=== PATIENT | male | born 1960 | race Caucasian/White ===

== ENCOUNTER 2019-02-08 00:46 | Inpatient (IN) | payer MEDICAID ==
[2019-02-08] VITALS (8 sets, daily range): BP systolic 135–154; BP diastolic 89–103
[~2019-02-08] VITALS: Ht 170.2 cm; Wt 78.0 kg
--- NOTE | 2019-02-08 00:50 | NUR ---
Note undone in EDM - 02/08/19 at 0122 by EVICTOR PT AAOX4. BIBRA. PT C/O SOB X1 DAY. PT ALSO C/O NAUSEA AND VOMITTING. -SOB. PT SPEAKING IN FULL SENTENCES. PER PT "I HAVE BEEN VOMITING FOR 24 HRS." PT PLACED ON CONTINIOUS MONITOR AND PULSE OX. NO ACUTE DISTRESS NOTED. MD AT BEDSIDE.
--- NOTE | 2019-02-08 00:50 | NUR ---
PT AAOX4. BIBRA. PT C/O SOB X1 DAY. PT ALSO C/O NAUSEA AND VOMITTING. -SOB. +COUGH. PT BREATHING EVEN AND UNLABORED. PER PT "I HAVE BEEN VOMITING FOR 24 HRS." PT PLACED ON CONTINIOUS MONITOR AND PULSE OX. NO ACUTE DISTRESS NOTED. MD AT BEDSIDE.
--- NOTE | 2019-02-08 00:51 | NUR ---
PT SAT 93% ROOM AIR PT PLACED ON 2L NC SAT 96%
[2019-02-08] MEDS ORDERED: ONDANSETRON HCL/PF 4 MG/2 ML VIAL IV ONE ×2 (01:00→03:30)
[2019-02-08] MEDS ORDERED: ONDANSETRON HCL/PF 4 MG/2 ML VIAL ONE ×2 (01:08→02:46)
[2019-02-08 01:15] LABS: BASOPHILS # (AUTO) 0.1 /CMM (0.0-0.2); BASOPHILS % (AUTO) 0.4 % (0.0-2.0); HEMATOCRIT 41 % (39-51); HEMOGLOBIN 13.8 g/dL (13.5-17.5); LYMPHOCYTES # (AUTO) 0.5 /CMM (0.8-4.8); LYMPHOCYTES % (AUTO) 2.3 % (20.0-44.0); MEAN CORPUSCULAR HGB CONC 34 g/dl (31.0-36.0); MEAN CORPUSCULAR VOLUME 104 fL (80-96); MONOCYTES # (AUTO) 0.4 /CMM (0.1-1.30); NEUTROPHILS # (AUTO) 20.8 /CMM (1.8-8.9); NEUTROPHILS % (AUTO) 95.3 % (43.0-81.0); PLATELET COUNT (AUTO) 456 /CMM (150-450); RED BLOOD CELL COUNT(AUTO) 3.94 MIL/uL (4.5-6.0); WHITE BLOOD COUNT (AUTO) 21.9 K/uL (4.3-11.0)
[2019-02-08 01:19] LABS: CALCIUM, SERUM 8.6 mg/dL (8.5-10.1); CARBON DIOXIDE 13 mmol/L (21-32); CHLORIDE 99 mmol/L (98-107); CREATININE 1.6 mg/dL (0.6-1.3); GLUCOSE 246 mg/dL (74-106); POTASSIUM 3.6 mmol/L (3.5-5.1); SODIUM SERUM 135 mmol/L (136-145); UREA NITROGEN, BLOOD 7 mg/dL (7-18)
[2019-02-08 01:35] LABS: BILIRUBIN,DIRECT 0.2 mg/dL (0.0-0.2); BILIRUBIN,TOTAL 0.9 mg/dL (0.2-1.0)
[2019-02-08 01:36] LABS: ALBUMIN 3.9 g/dL (3.4-5.0)
--- NOTE | 2019-02-08 01:38 | NUR ---
Patient is resting comfortably in bed with eyes closed. Easily aroused. VSS.
[2019-02-08] MEDS ORDERED: IV NS 0.9% 250 ML IV ONE (01:50)
[2019-02-08] MEDS ORDERED: IOHEXOL-350 100 ML VIAL IV ONE (01:50)
[2019-02-08] MEDS ORDERED: CT SWABBABLE VALVE TRANS SET 1 EA INFUS.SET MC ONE (01:50)
--- NOTE | 2019-02-08 01:54 | NUR ---
BROUGHT TO CT
[2019-02-08] MEDS ORDERED: IV NS 0.9% 1,000 ML IV PRN ×2 (02:30)
--- NOTE | 2019-02-08 02:45 | NUR ---
VERBAL ORDER 4MG/2ML ZOFRAN X1
--- NOTE | 2019-02-08 03:13 | NUR ---
Patient is resting comfortably in bed with eyes closed. Easily aroused. VSS.
[2019-02-08] MEDS ORDERED: CEFTRIAXONE 500 MG VIAL IV ONE (03:30)
[2019-02-08] MEDS ORDERED: AZITHROMYCIN 500 MG in IV D5W 250 ML IV ONE (03:30)
[2019-02-08] MEDS ORDERED: AZITHROMYCIN 500 MG VIAL ONE (03:33)
[2019-02-08] MEDS ORDERED: CEFTRIAXONE 500 MG VIAL ONE (03:33)
[2019-02-08] MEDS ORDERED: hydrALAZINE HCL IV 20 MG VIAL IV PRN (04:30)
[2019-02-08] MEDS ORDERED: IV NS 0.9% 500 ML IV ONE (04:30)
[2019-02-08] MEDS ORDERED: ONDANSETRON HCL/PF 4 MG/2 ML VIAL IVP PRN (04:30)
[2019-02-08] MEDS ORDERED: Z GUARD REMEDY 2 OZ OINT TP PRN (04:30)
[2019-02-08] MEDS ORDERED: MAG HYDROX/AL HYDROX/SIMETH 30 ML UDC PO PRN (04:30)
[2019-02-08] MEDS ORDERED: ZOLPIDEM TARTRATE 5 MG TABLET PO PRN (04:30)
[2019-02-08] MEDS ORDERED: MAGNESIUM HYDROXIDE 30 ML UDC PO PRN (04:30)
--- NOTE | 2019-02-08 05:00 | NUR ---
Report given to Kimmie NUNEZ FOR SIRIA
--- NOTE | 2019-02-08 05:50 | NUR ---
PT MOVED TO BED 102 PER ACLS PROTOCOL.
--- NOTE | 2019-02-08 06:00 | NUR ---
SENIOR PROPERTY ACCOUNTANTOXYACETYLENE TORCH OPERATOR NOTES PATIENT BROUGHT IN FROM ER VIA [facility] FOR SEPSIS AND HTN URGENCY. PATIENT IS ALERT, ORIENTED X 4. ON O2 AT 10L VIA MASK, CHANGED TO NON-REBREATHER MASK SATURATING 97%. PER VENDOR MANAGEMENT ASSOCIATE REPORT, PATIENT GETS VERY ANXIOUS AND GETS SHORT OF BREATH. TELE MONITOR IN PLACE, SINUS TACH 118. PATIENT CAME WITH IV ATB INFUSING WELL. SKIN ASSESSMENT DONE- PICTURE ATTACHED TO CHART. BELONGINGS CHECKED BY ASSIGNED BOW MAKER MACHINE TENDER. WILL CONTINUE TO MONITOR ACCORDINGLY
[2019-02-08] MEDS: IV 1/2NS 1000 ML 1,000 ML IV PRN (06:14)
--- NOTE | 2019-02-08 07:15 | NUR ---
UTILITY SPECIALIST OPENING NOTE: RECEIVED PATIENT IN BED. AWAKE, ALERT AND ORIENTED X4. ON FACE MASK WITH 10LPM CONT 02 FOR RELIEF OF HIS ANXIETY. PATIENT IS VERBALIZING ABOUT HIS ANXIETY ATTACKS. ON CARDIAC MONITORING AND SINUS TACHYCARDIA IN THE 110-120S NOTED. IV SITE ON RIGHT FA G18 WITH 1/2 NS INFUSING @ 75ML/HR. CALL NO PAIN REPORTED. NO SOB, NOT IN ACUTE DISTRESS. CALL LIGHT IN REACH,, SIDE RAILS UP, BED LOCKED, LOW AND AT SEMI-FOWLERS POSITION. WILL CONTINUE TO MONITOR.
--- NOTE | 2019-02-08 07:30 | NUR ---
HEAD START ASSISTANT TEACHER CLOSING NOTES PATIENT SITTING UP IN BED, ALERT, ORIENTED X 4. PATIENT IS VERY ANXIOUS. ON O2 AT 10LPM VIA MASK. TELE MONITOR IN PLACE- SINUS TACH 118. PERIPHERAL IV INFUSING AT 75ML/HR. SAFETY MEASURES IN PLACE. CALL LIGHT WITHIN REACH. BED IN LOW, LOCKED POSITION. ENDORSED SIRIA TO AM RN
[2019-02-08] MEDS: HYDROCODONE/APAP 5/325MG 1 EACH TABLET PO PRN ×3 (07:38→22:01)
[2019-02-08] MEDS ORDERED: CEFTRIAXONE 1 G in IV D5W 50 ML IV SCH (09:00)
[2019-02-08] MEDS ORDERED: CEFTRIAXONE 1GM BAG (ER ONLY) 1 GM/50 ML PIGGYBACK IV ONE (09:00)
--- NOTE | 2019-02-08 09:17 | NUR ---
MUSIC COORDINATOR NOTE: CONTACTED MALICK QUAN NP REGARDING PATIENT'S REQUEST FOR ANTI ANXIETY MEDICATION FOR HIS ANXIETY. XANAX WAS REQUESTED DUE TO PATIENT'S REQUEST. AWAITING RESPONSE.
[2019-02-08] MEDS: ENSURE ENLIVE 237 ML LIQUID (VANILLA) PO SCH ×2 (12:55→17:00)
[2019-02-08] MEDS: busPIRone 5 MG TABLET PO SCH ×2 (13:33→16:18)
[2019-02-08] MEDS: ACETAMINOPHEN 325 MG TABLET PO PRN (16:17)
--- NOTE | 2019-02-08 19:15 | NUR ---
MS RN CLOSING NOTE: PATIENT IN BED. AWAKE, ALERT AND ORIENTED X4. ON FACE MASK WITH 10LPM CONT 02 WITH SATURATION AT 94%, CHARGE NURSE INFORMED MALICK QUAN NP EARLIER OF PATIENT'S CONDITION WITH WBC AND LACTIC ACID ELEVATION AND HIS CURRENT VENTILATION AND SATURATION STATUS DESPITE THE CURRENT OXYGENATION LEVEL. PATIENT WAS STILL COMPLAINING OF CONGESTION AND NOT FEELING VERY WELL. ORDER FOR TRANSFER TO ICU TO BE DONE FOR SODIUM BICARBONATE DRIP FOR THE PATIENT OBTAINED, AWAITING VACANCY OF BED FOR TRANSFER TO BE DONE. PATIENT NOT IN DISTRESS. ANXIETY IS NOW CONTROLLED, TACHYCARDIA STILL APPARENT IN THE 120S, TEMPERATURE OF 100.2 WAS RECORDED EARLIER AND ACETAMINOPHEN 650MG GIVEN AND COOLING MEASURES DONE FOR RELIEF. IV SITE ON RIGHT FA G18 WITH 1/2 NS INFUSING @ 75ML/HR. CALL NO PAIN REPORTED. CALL LIGHT IN REACH,, SIDE RAILS UP, BED LOCKED, LOW AND AT SEMI-FOWLERS POSITION. ENDORSED TO ONCOMING SHIFT FOR SIRIA.
--- NOTE | 2019-02-08 19:30 | NUR ---
rn notes: awaiting for bed from icu
--- NOTE | 2019-02-08 19:45 | NUR ---
rn notes: per cook morning josh, pt will be going to room 264 icu report to be given in 10mins per ed travel registered nurse nicu instruction
--- NOTE | 2019-02-08 20:17 | NUR ---
rn notes: contacted icu for report, spoked with panel monitor/corporate secretary ale, [facility] is busy and thery're getting pt from er, not be able to take 2 pt at the same time, as their floor is really busy, and the assigned rn for the pt still passing medication, will call us back in 15mins. notified pattern duplicator josh about the situation.
--- NOTE | 2019-02-08 20:31 | NUR ---
rn notes: report given to nick rahman over the phone.
--- NOTE | 2019-02-08 20:40 | NUR ---
SENIOR CONSTRUCTION PROJECT MANAGER OF CARE NOTES: PT TRANSFERRED TO ICU VIA ACLS PROTOCOL. ALL BELONGINGS OF PT, MEDICATION AND CHART BROUGHT TOGETHER WITH THE PT, HANDED OVER TO UNIT SEC/BREAD BAKER. MAXIFIME MEDICATION NOT IN CASSETTE, FAXED TO RN SUP TO OVERRIDE MEDICATION. PT A/O X4, ON 15L NRB, PT STILL C/O CONGESTION. TACHYPNEIC RR 23. ENDORSED TO ENRIQUE ALEXIS FOR CONTINUITY OF CARE.
[2019-02-08] MEDS ORDERED: SODIUM BICARBONATE SYR 50 MEQ/50 ML DISP.SYRIN ONE (20:47)
[2019-02-08] MEDS: Sodium Bicarbonate 150 MEQ in IV NS 0.9% 1,000 ML IV SCH (20:59)
[2019-02-08] MEDS ORDERED: CEFEPIME 1 GM VIAL ONE (21:33)
[2019-02-08] MEDS: CEFEPIME 1 GM in IV D5W 50 ML IV SCH (21:43)
--- NOTE | 2019-02-08 22:10 | NUR ---
HOT BOX SPOTTER: CALLED AND NOTIFIED DR. WARREN THAT PT IS CONGESTED WT CRACKLES UPON LUNG AUSCULTATION AND RECOMMENDED BREATHING TX. MD AGREED WT NEW ORDERS. NOTED AND CARRIED OUT. PT. REMAINED A/O X3, RESTLESS, ST ON HUMAN RESOURCES HR GENERALIST, STILL ON 15L 02 VIA NC. NORCO GIVEN FOR GEN. BODY PAIN WT GOOD EFFECT. CONTINUE ON BICARB DRIP AT 100ML/HR. SAFETY PRECAUTION NOTED. WILL CONTINUE TO MONITOR. Addendum: 02/09/19 at 0224 by VANESA LEA RN CORRECTION: PT ON 15L 02 VIA NON-REBREATHER MASK NOT NC.
[2019-02-08] MEDS: IPRATROPIUM NEB FS 0.5 MG/2.5 ML AMPUL.NEB NEB SCH (23:10)
[2019-02-08] MEDS: LEVALBUTEROL HCL NEB 1.25 MG/0.5 ML VIAL.NEB NEB SCH (23:10)
[2019-02-08 23:31] LABS: ABG BASE EXCESS 1.2 mmol/L; ABG OXYGEN SATURATION 97.8 % (92.0-98.5); ABG PCO2 34.3 mmHg (35.0-45.0); ABG PO2 104.2 mmHg (75.0-100.0); AaDO2 574.5 mmHg; COHb 0.2 % (0.5-1.5); MetHb 0.5 % (0.0-1.5); O2Hb 97.1 % (94.0-97.0); SITE, ABG Right Radial; VENT MODE, BG NRB 15L
[2019-02-09] VITALS (24 sets, daily range): BP systolic 91–144; BP diastolic 57–95
[2019-02-09] MEDS: IPRATROPIUM NEB FS 0.5 MG/2.5 ML AMPUL.NEB NEB SCH ×6 (03:47→23:47)
[2019-02-09] MEDS: LEVALBUTEROL HCL NEB 1.25 MG/0.5 ML VIAL.NEB NEB SCH ×6 (03:47→23:47)
[2019-02-09 04:31] LABS: BASOPHILS % (AUTO) 0.5 % (0.0-2.0); EOSINOPHILS % (AUTO) 0.1 % (0.0-6.0); HEMATOCRIT 37 % (39-51); HEMOGLOBIN 12.9 g/dL (13.5-17.5); LYMPHOCYTES # (AUTO) 0.5 /CMM (0.8-4.8); LYMPHOCYTES % (AUTO) 6.8 % (20.0-44.0); MEAN CORPUSCULAR HGB CONC 35 g/dl (31.0-36.0); MEAN CORPUSCULAR VOLUME 104 fL (80-96); MONOCYTES # (AUTO) 0.1 /CMM (0.1-1.30); MONOCYTES % (AUTO) 1.5 % (2.0-12.0); NEUTROPHILS # (AUTO) 7.1 /CMM (1.8-8.9); NEUTROPHILS % (AUTO) 91.1 % (43.0-81.0); PLATELET COUNT (AUTO) 247 /CMM (150-450); WHITE BLOOD COUNT (AUTO) 7.7 K/uL (4.3-11.0)
[2019-02-09] MEDS: HYDROCODONE/APAP 5/325MG 1 EACH TABLET PO PRN ×3 (04:36→20:25)
[2019-02-09 05:07] LABS: CALCIUM, SERUM 7.7 mg/dL (8.5-10.1); PHOSPHORUS 2.2 mg/dL (2.5-4.9); POTASSIUM 3.6 mmol/L (3.5-5.1)
[2019-02-09 05:19] LABS: THYROID STIMULATING HORMONE 2.314 uIU/mL (0.358-3.74)
[2019-02-09 05:27] LABS: MAGNESIUM 1.1 mg/dL (1.8-2.4)
[2019-02-09] MEDS: Magnesium 1GM/D5W 100ML PREMIX 100 ML IV SCH ×3 (05:46→08:03)
[2019-02-09] MEDS: AZITHROMYCIN 500 MG in IV D5W 250 ML IV SCH (06:09)
--- NOTE | 2019-02-09 06:30 | NUR ---
LINE DECORATOR: PLACED OM 8L 02 VIA FACE MASK WT NO ACUTE DISTRESS. NSR ON PROCESS IMPROVEMENT CONSULTANT. ALL NEEDS MET. SAFETY PRECAUTION NOTED AT ALL TIMES.
[2019-02-09] MEDS: Sodium Bicarbonate 150 MEQ in IV NS 0.9% 1,000 ML IV SCH (06:36)
--- NOTE | 2019-02-09 08:00 | NUR ---
ICU/RN INITIAL NOTES,AM RECEIVED BEDSIDE REPORT FROM NIGHT NURSE. PT ALERT, AWAKE, FOLLOWS COMMANDS, RESTLESSNESS NOTED AT TIMES, CURRENTLY RESTING IN BED. PT SWITCHED TO 3LITERS NASAL CANULA FROM MASK FOR BREAKFAST. SINUS TACH ON TELE. URINAL AT BEDSIDE. PIV PATENT AND INTACT, NO S/S OF INFECTION OR INFILTRATION NOTED. IVF INFUSING ORDERED, MAG IS CURRENTLY BEING REPLACED PER MD ORDER. ALL NEEDS WILL BE ATTENDED TO, SAFETY MEASURES TAKEN, BED IN LOW POSITION, SIDE RAILS UP, CALL LIGHT WITHIN REACH. WILL CONTINUE CARE.
[2019-02-09] MEDS: busPIRone 5 MG TABLET PO SCH ×3 (08:15→17:35)
[2019-02-09] MEDS: ENSURE ENLIVE 237 ML LIQUID (VANILLA) PO SCH ×3 (08:16→17:35)
[2019-02-09] MEDS: CEFEPIME 1 GM in IV D5W 50 ML IV SCH ×2 (09:20→21:22)
[2019-02-09] MEDS ORDERED: K PHOS NEUTRAL 250 MG TABLET PO ONE (12:30)
--- NOTE | 2019-02-09 19:00 | NUR ---
ICU/RN: AT BEDSIDE. PT ASSESSED. WILL REQUEST RECORDS FROM PREVIOUS HOSPITAL IN AM. NO NEW ORDERS AT THIS TIME. LAB ORDERS PLACED BY MD. WILL CONTINUE TO MONITOR.
--- NOTE | 2019-02-09 19:28 | NUR ---
ICU/RN ENDING NOTES,AM BEDSIDE REPORT ENDORSED TO NIGHT NURSE. PT ALERT, AWAKE, FOLLOWS COMMANDS. ALL NEEDS ATTENDED TO. PT ON 3LITERS NASAL CANULA, NO ACUTE DISTRESS NOTED. SINUS TACH ON TELE. PT WAS ABLE TO GO TO BEDSIDE COMMODE. ALL NEEDS ATTENDED TO, SAFETY MEASURES TAKEN, BED IN LOW POSITION, SIDE RAILS UP, CALL LIGHT WITHIN REACH. WILL CONTINUE CARE.
--- NOTE | 2019-02-09 19:30 | NUR ---
RN NOTES, RECEIVED PATIENT IN BED AWAKE A/O X4 ABLE TO VERBALIZED NEEDS, FOLLOWS COMMANDS, ON 3LITERS NASAL CANULA BREATHING EVEN AND UNLABORED NO S/S OF SOB/ACUTE DISTRESS AT THIS TIME, NSR ON TELE MONITOR WITH HR IN 90S AT THIS TIME, IV ACCESS INTACT AND PATENT S/S , NO S/S OF INFECTION OR INFILTRATION NOTED, ALL NEEDS WILL BE ATTENDED TO,ALL SAFETY MEASURES MAINTAINED, BED LOCKED AND LOW POSITION, SIDE RAILS UP, CALL LIGHT W/I REACH, WILL CONTINUE TO MONITOR CLOSELY.
--- NOTE | 2019-02-09 22:15 | NUR ---
RN NOTES, PATIENT NOTED WITH PERSISTENT COUGH AND ASKING FOR ROBITUSSIN AND LOZENGES, CALLED MD AND REPORT PATIENT'S CONDITION, AND REPLIED WITH ORDERS FOR ROBITUSSIN Q4HRD PRN AND LOZENGES, REFER TO GREY, NOTED AND CARRIED OUT.
[2019-02-09] MEDS: GUAIFENESIN/CODEINE 10 ML UDC PO PRN (22:38)
[2019-02-10] VITALS (21 sets, daily range): BP systolic 111–150; BP diastolic 63–94
[2019-02-10] MEDS: IPRATROPIUM NEB FS 0.5 MG/2.5 ML AMPUL.NEB NEB SCH ×5 (04:09→20:05)
[2019-02-10] MEDS: LEVALBUTEROL HCL NEB 1.25 MG/0.5 ML VIAL.NEB NEB SCH ×5 (04:10→20:05)
[2019-02-10] MEDS: LORAZEPAM 0.5 MG TABLET PO PRN ×3 (04:34→18:23)
[2019-02-10 05:11] LABS: BASOPHILS % (AUTO) 0.6 % (0.0-2.0); EOSINOPHILS % (AUTO) 1.5 % (0.0-6.0); HEMATOCRIT 32 % (39-51); HEMOGLOBIN 10.7 g/dL (13.5-17.5); LYMPHOCYTES # (AUTO) 0.4 /CMM (0.8-4.8); LYMPHOCYTES % (AUTO) 7.9 % (20.0-44.0); MEAN CORPUSCULAR HGB CONC 34 g/dl (31.0-36.0); MEAN CORPUSCULAR VOLUME 104 fL (80-96); MONOCYTES # (AUTO) 0.1 /CMM (0.1-1.30); NEUTROPHILS # (AUTO) 4.4 /CMM (1.8-8.9); PLATELET COUNT (AUTO) 168 /CMM (150-450); RED BLOOD CELL COUNT(AUTO) 3.03 MIL/uL (4.5-6.0)
[2019-02-10 05:29] LABS: CREATININE 0.8 mg/dL (0.6-1.3); PHOSPHORUS 2.4 mg/dL (2.5-4.9)
[2019-02-10 05:36] LABS: POTASSIUM 2.7 mmol/L (3.5-5.1)
[2019-02-10] MEDS: AZITHROMYCIN 500 MG in IV D5W 250 ML IV SCH (05:52)
[2019-02-10 06:00] LABS: THYROID STIMULATING HORMONE 2.667 uIU/mL (0.358-3.74)
[2019-02-10] MEDS: POTASSIUM CHLORIDE 20 MEQ TAB.PRT.SR PO SCH ×2 (06:16→08:19)
[2019-02-10] MEDS: GUAIFENESIN/CODEINE 10 ML UDC PO PRN ×2 (06:21→21:43)
--- NOTE | 2019-02-10 07:00 | NUR ---
RN NOTES, PATIENT ASLEEP AT THIS TIME, BUT AROUSES EASILY TO VERBAL STIMULI, ON 3LITERS NASAL CANULA BREATHING EVEN AND UNLABORED NO S/S OF SOB/ACUTE DISTRESS AT THIS TIME, NSR ON TELE MONITOR WITH HR IN 90S AT THIS TIME, IV ACCESS INTACT AND PATENT S/S , WITH POTASSIUM 2.7 THIS MORNING, AND ORDERED RECEIVED FROM MD TO REPLACED IT, NO SIGNIFICANT CHANGE IN CONDITION DURING THE NIGHT ALL NEEDS WILL BE ATTENDED TO,ALL SAFETY MEASURES MAINTAINED, BED LOCKED AND LOW POSITION, SIDE RAILS UP, CALL LIGHT W/I REACH, WILL ENDORSE CONTINUITY OF CARE TO ONCOMING NURSE.
--- NOTE | 2019-02-10 07:45 | NUR ---
ICU/RN INITIAL NOTES,AM RECEIVED BEDSIDE REPORT FROM NIGHT NURSE. PT ALERT, AWAKE, FOLLOWS COMMANDS. CURRENTLY RESTING IN BED. PT ON 3LITERS NASAL CANULA. SINUS/SINUS TACH ON TELE. URINAL AT BEDSIDE. PIV PATENT AND INTACT, NO S/S OF INFECTION OR INFILTRATION NOTED. ALL NEEDS WILL BE ATTENDED TO, SAFETY MEASURES TAKEN, BED IN LOW POSITION, SIDE RAILS UP, CALL LIGHT WITHIN REACH. WILL CONTINUE CARE. POSSIBLE DOWNGRADE TODAY.
[2019-02-10] MEDS: busPIRone 5 MG TABLET PO SCH ×3 (08:19→17:04)
[2019-02-10] MEDS: ENSURE ENLIVE 237 ML LIQUID (VANILLA) PO SCH ×3 (08:20→17:04)
[2019-02-10] MEDS: MENTHOL/CETYLPYRD (CEPACOL) 1 LOZ LOZENGE PO PRN ×3 (08:23→20:55)
[2019-02-10] MEDS: IV 1/2NS 1000 ML 1,000 ML IV PRN (08:47)
[2019-02-10] MEDS: CEFEPIME 1 GM in IV D5W 50 ML IV SCH ×2 (09:50→21:00)
[2019-02-10] MEDS ORDERED: K PHOS NEUTRAL 250 MG TABLET PO ONE (11:30)
--- NOTE | 2019-02-10 17:35 | NUR ---
ICU/RN: PT TRANSFERRED TO [facility]. BEDSIDE REPORT ENDORSED TO BART RN. ALL BELONGINGS AND MEDICATIONS SENT WITH PT. ALL NEEDS ATTENDED TO, BED BATH GIVEN. BED IN LOW AND LOCKED POSITION, SIDE RAILS UP, CALL LIGHT WITHIN REACH WILL CONTINUE CARE. PT ON NASAL CANULA, 3LITERS, NO DISTRESS. SINUS ON TELE.
--- NOTE | 2019-02-10 17:40 | NUR ---
RN NOTES Patient received from ICU, on 2L o2 nasal cannula, no sob noted, patient denies pain at this time and vital signs stable. Patient placed on tele monitor. Skin intact, R FA 18 gauge with no IVF at this time. Patient's bed at the lowest setting, call light within reach, side rails up x2.
[2019-02-10] MEDS: FERROUS SULFATE (325 MG) 325 MG/TAB TABLET PO SCH (18:19)
--- NOTE | 2019-02-10 18:33 | NUR ---
RN NOTES CLOSING Patient remains on 2L nasal cannula. no sob noted, patient denies any pain at this time. ST in the 90's. RFA 18g. Ativan given prn. bed at the lowest setting, call light within reach, side rails up x2. Will give report to NOC RN for SIRIA bedside.
--- NOTE | 2019-02-10 19:10 | NUR ---
CHANGED OF SHIFT REPORT Patient in bed, awake A/O x4. On 2L via NC tolerating well, non productive cough, denies pain. Sinu Rhythm in the Tele monitor. Appears calm, instructed to use call light for assistance, verbalized understanding.
[2019-02-10 22:11] LABS: OCCULT BLOOD STOOL NEGATIVE (NEGATIVE)
[2019-02-11] VITALS (7 sets, daily range): BP systolic 147–168; BP diastolic 89–103
[2019-02-11] MEDS: IPRATROPIUM NEB FS 0.5 MG/2.5 ML AMPUL.NEB NEB SCH ×7 (00:27→22:51)
[2019-02-11] MEDS: LEVALBUTEROL HCL NEB 1.25 MG/0.5 ML VIAL.NEB NEB SCH ×8 (00:27→22:51)
[2019-02-11] MEDS: LORAZEPAM 0.5 MG TABLET PO PRN ×3 (03:18→17:45)
[2019-02-11] MEDS: AZITHROMYCIN 500 MG in IV D5W 250 ML IV SCH (05:15)
--- NOTE | 2019-02-11 06:17 | NUR ---
END OF SHIFT REPORT Patient in bed, on low flow oxygen at 2L via NC tolerating well, denies SOB at rest and with exertion. Sinus rhythm in the Tele monitor. Cough relieved with PRN Robitussin/codeine. IV antibiotic as scheduled, Afebrile overnight. Stool OB negative. Fall precaution maintained.
[2019-02-11 06:28] LABS: BASOPHILS % (AUTO) 0.6 % (0.0-2.0); EOSINOPHILS % (AUTO) 3.3 % (0.0-6.0); HEMATOCRIT 31 % (39-51); HEMOGLOBIN 10.6 g/dL (13.5-17.5); LYMPHOCYTES # (AUTO) 0.4 /CMM (0.8-4.8); LYMPHOCYTES % (AUTO) 8.8 % (20.0-44.0); MEAN CORPUSCULAR HGB CONC 34 g/dl (31.0-36.0); MEAN CORPUSCULAR VOLUME 104 fL (80-96); MONOCYTES # (AUTO) 0.3 /CMM (0.1-1.30); MONOCYTES % (AUTO) 6.1 % (2.0-12.0); NEUTROPHILS # (AUTO) 3.6 /CMM (1.8-8.9); NEUTROPHILS % (AUTO) 81.2 % (43.0-81.0); PLATELET COUNT (AUTO) 183 /CMM (150-450); RED BLOOD CELL COUNT(AUTO) 2.98 MIL/uL (4.5-6.0); WHITE BLOOD COUNT (AUTO) 4.4 K/uL (4.3-11.0)
[2019-02-11 06:58] LABS: CALCIUM, SERUM 8.3 mg/dL (8.5-10.1); CREATININE 0.8 mg/dL (0.6-1.3); MAGNESIUM 1.6 mg/dL (1.8-2.4)
--- NOTE | 2019-02-11 07:38 | NUR ---
HOUSEHOLD CHORES OPENING NOTES Received Patient awake and resting in bed. A/O x 4. Patient in stable condition with no acute distress. Breathing even and unlabored on 2LPM via NC with no respiratory distress. Denies pain. Telemonitor in place and patent reading SR, HR-95. Safety precautions in place. Bed locked and set to lowest position with side rails x 2 up. All needs rendered at this time. Call light within reach. Will continue to monitor.
[2019-02-11 07:58] LABS: POTASSIUM 2.8 mmol/L (3.5-5.1)
[2019-02-11] MEDS: ENSURE ENLIVE 237 ML LIQUID (VANILLA) PO SCH ×3 (08:00→16:32)
[2019-02-11] MEDS: FERROUS SULFATE (325 MG) 325 MG/TAB TABLET PO SCH ×2 (09:19→16:32)
[2019-02-11] MEDS: busPIRone 5 MG TABLET PO SCH ×3 (09:19→16:32)
[2019-02-11] MEDS: Magnesium 1GM/D5W 100ML PREMIX 100 ML IV SCH ×2 (09:46→11:04)
[2019-02-11] MEDS: POTASSIUM CL. PREMIX PERIPHER. 50 ML IV SCH ×4 (10:00→12:33)
[2019-02-11] MEDS ORDERED: Magnesium 1GM/D5W 100ML PREMIX 100 ML IV SCH (11:00)
[2019-02-11] MEDS: CEFEPIME 1 GM in IV D5W 50 ML IV SCH (12:33)
[2019-02-11] MEDS: HYDROCODONE/APAP 5/325MG 1 EACH TABLET PO PRN ×2 (13:42→23:59)
[2019-02-11] MEDS: Potassium Chloride 10 MEQ, LIDOCAINE HCL/PF 1% 1 ML in IV NS 0.9% 50 ML IV SCH ×3 (16:31→19:02)
--- NOTE | 2019-02-11 18:57 | NUR ---
MEDIA TECHNICIAN CLOSING NOTES Patient awake and resting in bed. A/O x 4. VS stable with no acute distress. Breathing even and unlabored on 2LPM via NC with no respiratory distress. Denies pain. 22g PIV on left wrist clean, intact, patent and flushing well. Telemonitor in place and patent reading SR, HR-91. Safety precautions in place. Bed locked and set to lowest position with side rails x 2 up. All needs rendered at this time. Call light within reach. Will continue to monitor. Addendum: 02/11/19 at 1925 by KLAUS MCFADDEN RN Will endorse plan of care to oncoming shift.
--- NOTE | 2019-02-11 19:12 | NUR ---
CHANGED OF SHIFT REPORT Patient in bed, awake A/O x4. Sinu Rhythm in the Tele monitor. Continuous on low flow oxygen at 2L via NC, appears calm, denies pain. Instructed to use call light for assistance, verbalized understanding.
[2019-02-11] MEDS: CEFTRIAXONE 1 G in IV D5W 50 ML IV SCH (20:24)
[2019-02-11] MEDS: GUAIFENESIN/CODEINE 10 ML UDC PO PRN (20:34)
[2019-02-11] MEDS: HEPARIN SODIUM, PORCINE 5000 UNITS/1 ML VIAL SQ SCH (20:39)
[2019-02-12 00:01] VITALS: BP 161/100
[2019-02-12] MEDS: LEVALBUTEROL HCL NEB 1.25 MG/0.5 ML VIAL.NEB NEB SCH ×6 (03:31→23:16)
[2019-02-12] MEDS: IPRATROPIUM NEB FS 0.5 MG/2.5 ML AMPUL.NEB NEB SCH ×6 (03:31→23:16)
[2019-02-12 04:34] VITALS: BP 159/102
--- NOTE | 2019-02-12 06:17 | NUR ---
END OF SHIFT REPORT Patient in bed, tolerating oxygen at 2L via NC. Sinus rhythm in the Tele monitor. Cough relieved with PRN Robitussin/codeine. IV antibiotic as scheduled, Afebrile overnight. Back pain controlled with PRN [place], denies nausea no vomiting. Fall precaution maintained.
[2019-02-12] MEDS: LORAZEPAM 0.5 MG TABLET PO PRN ×2 (06:44→17:44)
[2019-02-12 06:49] LABS: CALCIUM, SERUM 8.7 mg/dL (8.5-10.1); CREATININE 0.8 mg/dL (0.6-1.3); POTASSIUM 3.6 mmol/L (3.5-5.1)
[2019-02-12 06:54] LABS: BASOPHILS % (AUTO) 0.5 % (0.0-2.0); HEMATOCRIT 32 % (39-51); HEMOGLOBIN 11.1 g/dL (13.5-17.5); LYMPHOCYTES # (AUTO) 0.5 /CMM (0.8-4.8); LYMPHOCYTES % (AUTO) 10.3 % (20.0-44.0); MEAN CORPUSCULAR HGB CONC 34 g/dl (31.0-36.0); MEAN CORPUSCULAR VOLUME 104 fL (80-96); MONOCYTES # (AUTO) 0.7 /CMM (0.1-1.30); MONOCYTES % (AUTO) 14.9 % (2.0-12.0); NEUTROPHILS # (AUTO) 3.6 /CMM (1.8-8.9); NEUTROPHILS % (AUTO) 71.3 % (43.0-81.0); PLATELET COUNT (AUTO) 192 /CMM (150-450); RED BLOOD CELL COUNT(AUTO) 3.08 MIL/uL (4.5-6.0)
--- NOTE | 2019-02-12 07:26 | NUR ---
MS RN OPENING NOTE PATIENT IN BED SLEEPING COMFORTABLY. PATIENT IN NO ACUTE DISTRESS. NO SOB NOTED. PATIENT BREATHING IS EVEN AND UNLABORED. PATIENT BREATHING ON OXYGEN NC AT 2L. PATIENT ON TELE MONITOR, READING SINUS RHYTHM HR 97. PATIENT SAFETY PRECAUTIONS IN PLACE. PATIENT BED IS LOCKED AND IN LOWEST POSITION. CALL LIGHT WITHIN REACH. WILL CONTINUE TO MONITOR. Addendum: 02/12/19 at 0731 by CABRERA PATEL RN PHARMACY COORDINATOR OPENING NOTE
[2019-02-12 08:00] VITALS: BP 157/103
[2019-02-12] MEDS: ENSURE ENLIVE 237 ML LIQUID (VANILLA) PO SCH ×3 (08:01→16:11)
[2019-02-12] MEDS: PANTOPRAZOLE 40 MG/PACK PACK NG SCH (08:38)
[2019-02-12] MEDS: busPIRone 5 MG TABLET PO SCH ×3 (08:38→16:11)
[2019-02-12] MEDS: AZITHROMYCIN 250 MG TABLET PO SCH (08:39)
[2019-02-12] MEDS: FERROUS SULFATE (325 MG) 325 MG/TAB TABLET PO SCH ×2 (08:39→16:11)
[2019-02-12] MEDS: HEPARIN SODIUM, PORCINE 5000 UNITS/1 ML VIAL SQ SCH ×2 (08:44→21:53)
[2019-02-12] MEDS: HYDROCODONE/APAP 5/325MG 1 EACH TABLET PO PRN ×2 (11:46→22:10)
[2019-02-12] MEDS: COLCHICINE 0.6 MG TABLET PO SCH (12:48)
[2019-02-12] MEDS: ACETAMINOPHEN 325 MG TABLET PO PRN (14:30)
[2019-02-12 16:00] VITALS: BP 146/95
--- NOTE | 2019-02-12 16:00 | NUR ---
MS NUNEZ NOTE TEMPERATURE IS 99.6 IMPLEMENTED COOLING MEASURES. PATIENT IN NO ACUTE DISTRESS. PATIENT DOES NOT FEEL HOT AND RESPIRATIONS ARE EVEN AND UNLABORED. Addendum: 02/12/19 at 1827 by CABRERA PATEL RN ORAL TEMP IS NOW 98.6
--- NOTE | 2019-02-12 18:32 | NUR ---
MS RN CLOSING NOTE PATIENT IN BED RESTING COMFORTABLY. PATIENT IN NO ACUTE DISTRESS. NO SOB NOTED. PATIENT BREATHING IS EVEN AND UNLABORED. PATIENT BREATHING ON OXYGEN NC AT 2L. NEEDS AND CONCERNS ADDRESSED. PATIENT KEPT CLEAN, DRY, AND COMFORTABLE THROUGHOUT SHIFT. PATIENT SAFETY PRECAUTIONS IN PLACE. PATIENT BED IS LOCKED AND IN LOWEST POSITION. CALL LIGHT WITHIN REACH. WILL ENDORSE CARE TO PM SHIFT FOR SIRIA.
--- NOTE | 2019-02-12 19:10 | NUR ---
CHANGED OF SHIFT REPORT Patient in bed, awake A/O x4. Continuous on low flow oxygen at 2L via NC, appears calm, denies pain. Instructed to use call light for assistance, verbalized understanding. Maintained safety.
[2019-02-12 20:00] VITALS: BP 158/93
[2019-02-12] MEDS: CEFTRIAXONE 1 G in IV D5W 50 ML IV SCH (20:19)
--- NOTE | 2019-02-12 21:30 | NUR ---
LOW GRADE TEMP Oral temp 100.1 cooling measures rendered, loosen clothing for comfort. Informed BATOOL Em with no new orders at this time.
[2019-02-12] MEDS: GUAIFENESIN/CODEINE 10 ML UDC PO PRN (22:06)
[2019-02-13] MEDS: LEVALBUTEROL HCL NEB 1.25 MG/0.5 ML VIAL.NEB NEB SCH ×6 (02:51→23:30)
[2019-02-13] MEDS: IPRATROPIUM NEB FS 0.5 MG/2.5 ML AMPUL.NEB NEB SCH ×6 (02:51→23:30)
[2019-02-13] MEDS: HYDROCODONE/APAP 5/325MG 1 EACH TABLET PO PRN ×4 (05:22→22:14)
--- NOTE | 2019-02-13 06:13 | NUR ---
END OF SHIFT REPORT Patient in bed, tolerating oxygen at 2L via NC. Cough relieved with PRN Robitussin/codeine. IV antibiotic as scheduled, Afebrile overnight. foot/leg pain controlled with PRN [place], denies nausea no vomiting. Fall precaution maintained.
--- NOTE | 2019-02-13 07:47 | NUR ---
MS RN NOTES PATIENT RECEIVED RESTING INSIDE ROOM. SLEEPING, AROUSABLE THROUGH VERBAL AND TACTILE STIMULI. NO CHANGES IN LOC NOTED. O2 IN PLACE AT 2LMIN VIA NC. NO ACUTE DISTRESS. PATIENT DENIES ANY PAIN OR DISCOMFORT AT THIS TIME. SAFETY PRECAUTIONS IN PLACE. WILL CONTINUE TO MONITOR. BED LOCKED AND IN LOW POSITION. BILATERAL UPPER SIDE RAILS UP AND LOCKED. CALL LIGHT WITHIN EASY REACH
[2019-02-13 08:00] VITALS: BP 142/92
[2019-02-13] MEDS: FERROUS SULFATE (325 MG) 325 MG/TAB TABLET PO SCH ×2 (08:31→16:14)
[2019-02-13] MEDS: PANTOPRAZOLE 40 MG/PACK PACK NG SCH (08:31)
[2019-02-13] MEDS: COLCHICINE 0.6 MG TABLET PO SCH (08:31)
[2019-02-13] MEDS: ENSURE ENLIVE 237 ML LIQUID (VANILLA) PO SCH ×3 (08:31→16:14)
[2019-02-13] MEDS: busPIRone 5 MG TABLET PO SCH ×3 (08:31→16:15)
[2019-02-13] MEDS: AZITHROMYCIN 250 MG TABLET PO SCH (08:31)
[2019-02-13] MEDS: HEPARIN SODIUM, PORCINE 5000 UNITS/1 ML VIAL SQ SCH (08:32)
[2019-02-13] MEDS ORDERED: LEVO500T75 PO (15:09)
[2019-02-13] MEDS: LORAZEPAM 0.5 MG TABLET PO PRN (15:13)
--- NOTE | 2019-02-13 15:33 | NUR ---
MS RN NOTES PATIENT CLEARED FOR DISCHARGE HOME BY DR MAX. PATIENT WITH ORAL TEMP OF 100.3. DR MAX MADE AWARE, CLEARED PATIENT TO DISCHARGE. PATIENT MADE AWARE AND VERBALIZED UNDERSTANDING. WILL CONTINUE TO MONITOR
[2019-02-13] MEDS: ACETAMINOPHEN 325 MG TABLET PO PRN (15:51)
[2019-02-13 16:00] VITALS: BP 142/92
--- NOTE | 2019-02-13 16:54 | NUR ---
MS RN NOTES PLACED CALL TO [facility] (PATIENT'S PREFERRED PHARMACY) AND SPOKE WITH ARPI, VERIFIED THAT THEY HAVE RECEIVED PATIENT'S PRESCRIPTION FOR ATB. PATIENT MADE AWARE AND VERBALIZED UNDERSTANDING. WILL CONTINUE TO MONITOR
--- NOTE | 2019-02-13 17:18 | NUR ---
MS RN NOTES PATIENT WITH DISCHARGE ORDER FROM DR MAX. PATIENT VERBALIZED THAT HE DOESNT FEEL BETTER ENOUGH TO GO HOME. NO ACUTE DISTRESS, PATIENT DENIES ANY PAIN OR DISCOMFORT. PATIENT ASKED IF HE MAY STAY LONGER IN THE HOSPITAL. DR MAX MADE AWARE AND GAVE OK, VERBALIZED ITS OK TO NOT DISCHARGE AT THIS TIME AND HE WILL SEE PATIENT IN AM. PATIENT MADE AWARE AND VERBALIZED UNDERSTANDING AND THANKS. CHARGE NURSE MADE AWARE. WILL CONTINUE TO MONITOR.
--- NOTE | 2019-02-13 18:36 | NUR ---
MS RN NOTES PATIENT RESTING INSIDE ROOM. AWAKE, ALERT AND ORIENTED X 4, NO ACUTE DISTRESS. NO CHANGES IN LOC NOTED. PATIENT CALM AND RELAXED. WILL ENDORSE TO INCOMING SHIFT FOR SIRIA. PATIENT KEPT CLEAN, DRY AND COMFORTABLE. PROVIDED WITH CALM, SAFE, HAZARD-FREE ENVIRONMENT. BED LOCKED AND IN LOW POSITION. CALL LIGHT WITHIN EASY REACH
--- NOTE | 2019-02-13 19:13 | NUR ---
MS RN NOTES PATIENT RESTING INSIDE ROOM. NO ACUTE DISTRESS. REPORT GIVEN TO ARTUR NUNEZ FOR SIRIA.
[2019-02-13 20:00] VITALS: BP 122/68
[2019-02-13] MEDS: GUAIFENESIN/CODEINE 10 ML UDC PO PRN (21:18)
--- NOTE | 2019-02-13 21:20 | NUR ---
RN NOTES PT. IS COMPLAINING OF COUGHING- ROBITUSSIN 10ML PO GIVEN ORDERED, V/S STABLE
--- NOTE | 2019-02-13 22:00 | NUR ---
MS RN NOTES RECEIVED PT FROM PRESCRIPTIONIST. AWAKE & RESPONSIVE. NOT IN ANY DISTRESS. NO SOB NOTED. DENIES ANY PAIN OR DISCOMFORT AT THIS TIME. WITH IV-HL PATENT & INTACT. CALL LIGHT WITHIN REACH. BED IN LOWEST POSITION. SR UP X 2 FOR SAFETY. WILL CONTINUE TO MONITOR.
[2019-02-13] MEDS: CEFTRIAXONE 1 G in IV D5W 50 ML IV SCH (22:10)
[2019-02-14] MEDS: IPRATROPIUM NEB FS 0.5 MG/2.5 ML AMPUL.NEB NEB SCH ×6 (02:40→23:22)
[2019-02-14] MEDS: LEVALBUTEROL HCL NEB 1.25 MG/0.5 ML VIAL.NEB NEB SCH ×6 (02:40→23:22)
[2019-02-14] MEDS: LORAZEPAM 0.5 MG TABLET PO PRN ×3 (02:57→19:38)
--- NOTE | 2019-02-14 08:00 | NUR ---
MS RN OPENING NOTES Received Patient resting in bed. A/O x 4. VS stable with no acute distress. Breathing even and unlabored on 2LPM via NC with no respiratory distress. Patient stated 5-6/10 pain on bilateral knees and left shoulder. Administered [place] 5.325mg x 1 tab per Patients request. Will continue to monitor. 22g PIV on left wrist clean, intact and flushing well. Safety precautions in place. Bed locked and set to lowest position with side rails x 2 up. All needs rendered at this time. Call light within reach. Will continue to monitor.
[2019-02-14] MEDS: ENSURE ENLIVE 237 ML LIQUID (VANILLA) PO SCH ×3 (08:11→17:20)
[2019-02-14] MEDS: FERROUS SULFATE (325 MG) 325 MG/TAB TABLET PO SCH ×2 (08:12→17:19)
[2019-02-14] MEDS: AZITHROMYCIN 250 MG TABLET PO SCH (08:12)
[2019-02-14] MEDS: busPIRone 5 MG TABLET PO SCH ×3 (08:12→17:19)
[2019-02-14] MEDS: COLCHICINE 0.6 MG TABLET PO SCH (08:12)
[2019-02-14] MEDS: HYDROCODONE/APAP 5/325MG 1 EACH TABLET PO PRN ×4 (08:14→21:47)
[2019-02-14 09:12] VITALS: BP 136/85
--- NOTE | 2019-02-14 10:34 | NUR ---
MS RN NOTES Per Solange DAN, may postpone discharge. Patient with temp of 100.1F and complaints of gout pain. Per , changed Azithromycin to Levaquin IV ABX and started Prednisolone today. Will continue to monitor.
[2019-02-14] MEDS: PANTOPRAZOLE 40 MG TABLET.DR PO SCH (10:39)
[2019-02-14] MEDS ORDERED: prednisoLONE 5 MG TABLET PO SCH (11:30)
[2019-02-14] MEDS ORDERED: prednisoLONE SOLUTION 15 MG/5 ML UDC PO SCH (12:00)
[2019-02-14] MEDS: LEVOFLOXACIN 750 MG /D5W 150ML 750 MG in PREMIX 1 EA IV SCH (13:28)
[2019-02-14 13:32] LABS: BASOPHILS % (AUTO) 0.5 % (0.0-2.0); EOSINOPHILS % (AUTO) 2.9 % (0.0-6.0); HEMATOCRIT 34 % (39-51); HEMOGLOBIN 11.4 g/dL (13.5-17.5); LYMPHOCYTES # (AUTO) 0.5 /CMM (0.8-4.8); LYMPHOCYTES % (AUTO) 7.4 % (20.0-44.0); MEAN CORPUSCULAR HGB CONC 34 g/dl (31.0-36.0); MEAN CORPUSCULAR VOLUME 104 fL (80-96); MONOCYTES # (AUTO) 0.8 /CMM (0.1-1.30); NEUTROPHILS # (AUTO) 5.1 /CMM (1.8-8.9); NEUTROPHILS % (AUTO) 77.2 % (43.0-81.0); PLATELET COUNT (AUTO) 326 /CMM (150-450); RED BLOOD CELL COUNT(AUTO) 3.25 MIL/uL (4.5-6.0); WHITE BLOOD COUNT (AUTO) 6.6 K/uL (4.3-11.0)
[2019-02-14 16:26] VITALS: BP 125/77
--- NOTE | 2019-02-14 18:39 | NUR ---
MS RN CLOSING NOTES Patient resting in bed. A/O x 4. VS stable with no acute distress. Breathing even and unlabored on 2LPM via NC with no respiratory distress. Patient stated 5-6/10 pain on bilateral knees and left shoulder. Administered [place] 5-325mg x 1 tab per Patients request at 1740. Will endorse to oncoming shift. 22g PIV on left wrist clean, intact and flushing well. Safety precautions in place. Bed locked and set to lowest position with side rails x 2 up. All needs rendered at this time. Call light within reach. Will endorse plan of care to oncoming shift.
--- NOTE | 2019-02-14 19:30 | NUR ---
MSRN FULLY AWAKE, BREATHING TREATMENT ON PROGRESS. REQUESTED FOR ATIVAN AFTER TREATMENT. PATIENT APPEARS TO BE ANXIOUS. WILL CONTINUE.
--- NOTE | 2019-02-14 19:40 | NUR ---
MSRN ATIVAN 0.5 MG 1 TAB PO ADMINISTERED ORDERED. BEDREST EMPHASIZED, INSTRUCTED TO CALL STAFF FOR ANY DISCOMFORTS OR ASSISTANCE. SAFETY PRECAUTIONS INSTRUCTED, WELL UNDERSTOOD.
[2019-02-14] MEDS: CEFTRIAXONE 1 G in IV D5W 50 ML IV SCH (19:51)
[2019-02-14 20:00] VITALS: BP_SYST 120; BP_DIAS 55; BP_DIAS 82
[2019-02-14] MEDS: GUAIFENESIN/CODEINE 10 ML UDC PO PRN (21:49)
--- NOTE | 2019-02-14 21:51 | NUR ---
MSRN DRY COUGH , PRESCRIBED COUGH SYRUP ADMINISTRED. HAS PAIN ON LEFT SHOULDER AND ELBOW AND BOTH KNEES. PAIN MED ADMINISTERED ORDERED, TO CONTINUE
[2019-02-14 23:15] VITALS: BP 120/82
--- NOTE | 2019-02-15 01:29 | NUR ---
MSRN ASLEEP AT THIS TIME, CLOSELY WATCHED.
[2019-02-15] MEDS: LEVALBUTEROL HCL NEB 1.25 MG/0.5 ML VIAL.NEB NEB SCH ×4 (03:01→15:30)
[2019-02-15] MEDS: IPRATROPIUM NEB FS 0.5 MG/2.5 ML AMPUL.NEB NEB SCH ×4 (03:01→15:30)
[2019-02-15 03:46] LABS: APPEARANCE,URINE CLEAR (CLEAR); BILIRUBIN,URINE NEGATIVE (NEGATIVE); BLOOD, URINE NEGATIVE Ery/uL (NEGATIVE); COLOR,URINE YELLOW (YELLOW); KETONES,URINE NEGATIVE (NEGATIVE); LEUKOCYTE ESTERASE ,URINE NEGATIVE (NEGATIVE); NITRITE, URINE NEGATIVE (NEGATIVE); PROTEIN,URINE NEGATIVE (NEGATIVE); UGLUCOSE NEGATIVE (NEGATIVE); UROBILINOGEN,URINE 0.2 EU/dL (0.2)
--- NOTE | 2019-02-15 06:35 | NUR ---
MSRN REMAINS UNCHANGED. REMAINS AFEBRILE
[2019-02-15 07:00] LABS: BASOPHILS % (AUTO) 0.1 % (0.0-2.0); EOSINOPHILS % (AUTO) 0.1 % (0.0-6.0); HEMATOCRIT 33 % (39-51); HEMOGLOBIN 11.1 g/dL (13.5-17.5); LYMPHOCYTES # (AUTO) 0.2 /CMM (0.8-4.8); LYMPHOCYTES % (AUTO) 2.4 % (20.0-44.0); MEAN CORPUSCULAR HGB CONC 34 g/dl (31.0-36.0); MEAN CORPUSCULAR VOLUME 104 fL (80-96); MONOCYTES # (AUTO) 0.6 /CMM (0.1-1.30); MONOCYTES % (AUTO) 6.1 % (2.0-12.0); NEUTROPHILS # (AUTO) 8.4 /CMM (1.8-8.9); NEUTROPHILS % (AUTO) 91.3 % (43.0-81.0); PLATELET COUNT (AUTO) 362 /CMM (150-450); RED BLOOD CELL COUNT(AUTO) 3.16 MIL/uL (4.5-6.0); WHITE BLOOD COUNT (AUTO) 9.2 K/uL (4.3-11.0)
--- NOTE | 2019-02-15 07:30 | NUR ---
ms rn received on bed, awake,alert,oriented x4,not in any form of distress,respirations even and unlabored,no sob noted, lungs are diminished,abdomen soft,positive bowel sounds,denies pain at this time,will monitor patient's condition.
[2019-02-15 07:32] LABS: CREATININE 0.9 mg/dL (0.6-1.3); MAGNESIUM 1.9 mg/dL (1.8-2.4)
[2019-02-15 08:00] VITALS: BP 132/77
[2019-02-15] MEDS: busPIRone 5 MG TABLET PO SCH ×3 (08:45→16:43)
[2019-02-15] MEDS: PANTOPRAZOLE 40 MG TABLET.DR PO SCH (08:45)
[2019-02-15] MEDS: LORAZEPAM 0.5 MG TABLET PO PRN ×2 (08:45→16:43)
[2019-02-15] MEDS: COLCHICINE 0.6 MG TABLET PO SCH (08:45)
[2019-02-15] MEDS: FERROUS SULFATE (325 MG) 325 MG/TAB TABLET PO SCH ×2 (08:45→16:43)
[2019-02-15] MEDS: ENSURE ENLIVE 237 ML LIQUID (VANILLA) PO SCH ×3 (08:46→16:47)
[2019-02-15] MEDS ORDERED: predniSONE 50 MG TABLET PO SCH (09:00)
[2019-02-15] MEDS ORDERED: predniSONE 20 MG TABLET PO SCH (09:00)
--- NOTE | 2019-02-15 09:00 | NUR ---
ms rahman breakfast served,due meds given,tolerated well.
[2019-02-15] MEDS: HYDROCODONE/APAP 5/325MG 1 EACH TABLET PO PRN (11:21)
[2019-02-15] MEDS: LEVOFLOXACIN 750 MG /D5W 150ML 750 MG in PREMIX 1 EA IV SCH (12:34)
--- NOTE | 2019-02-15 15:00 | NUR ---
ms rn patient on bed, no distress noted, will be discharge today.
[2019-02-15 16:00] VITALS: BP 136/87
--- NOTE | 2019-02-15 16:30 | NUR ---
ms yarn salvager instructions given and understood, was discharge accompanied by mother.all needs attended.
[2019-02-18 20:06] LABS: *MYCOPLASMA PNEUMONIAE IgG 172 U/mL (0-99); *MYCOPLASMA PNEUMONIAE IgM <770 U/mL (0-769)
== END 2019-02-15 16:45 | disposition home or self-care (01) | DRG 720 ==
LOC: ER 00:48 → TELE1 04:18 → MEDSG1 10:09 → ICU 20:32 → TELE 02-10 17:27 → MED 02-12 12:28
PROVIDERS: ADMIT Registered Nurse; ATTEND Hospitalist
DX: A41.9 Sepsis, unspecified organism (principal); J96.01 Acute respiratory failure with hypoxia; N17.0 Acute kidney failure with tubular necrosis; J69.0 Pneumonitis due to inhalation of food and vomit; E87.2 Acidosis; M84.48XA Pathological fracture, other site, initial encounter for fracture; E83.42 Hypomagnesemia; C62.92 Malignant neoplasm of left testis, unspecified whether descended or undescended; K76.0 Fatty (change of) liver, not elsewhere classified; Z92.21 Personal history of antineoplastic chemotherapy; K21.9 Gastro-esophageal reflux disease without esophagitis; D50.9 Iron deficiency anemia, unspecified; R73.9 Hyperglycemia, unspecified; R91.1 Solitary pulmonary nodule; Y90.9 Presence of alcohol in blood, level not specified; F43.22 Adjustment disorder with anxiety; M10.9 Gout, unspecified; E87.6 Hypokalemia; F10.229 Alcohol dependence with intoxication, unspecified; F10.239 Alcohol dependence with withdrawal, unspecified
CPT/HCPCS: 36415; 36600; 71045-TC; 80048-TC; 80061-TC; 80076-TC; 81000-TC; 82105; 82272-TC; 82728-TC; 83540-TC; 83605-TC; 83615-TC; 83690-TC; 83735-TC; 84100-TC; 84443-TC; 84484-TC; 84702-TC; 85025-TC; 86738; 87040-TC; 87070-TC; 87081-TC; 87086-TC; 87449; 94799-TC; 97116-TC; 97530-TC; A4216; G0378; J0360; J0456; J0692; J0696; J1644; J1956; J2405; J3475; J3480; J3490; J7030; J7040; J7050; J7060; J7510; Q9967

== ENCOUNTER 2019-09-19 15:35 | Emergency (ER) | payer MEDICAID ==
[~2019-09-19] VITALS: Ht 170.2 cm; Wt 81.6 kg
[~2019-09-19 15:35] MED LIST: LEVO500T75 PO
--- NOTE | 2019-09-19 16:08 | NUR ---
B NICHELLE, PAC IS AT THE BEDSIDE.
--- NOTE | 2019-09-19 16:09 | NUR ---
PT PRESENTED TO THE ER WITH A C/O HEAD INJURY YESTERDAY S/P GLF. PT DENIES KO. PT HAS BEEN FORGETFUL SINCE AND C/O FEELING OFF BALANCE. PT AMBULATED TO ER 7 WITH A STEADY GAIT.
[2019-09-19 17:20] VITALS: BP 123/82
== END 2019-09-19 17:32 | disposition home or self-care (01) ==
LOC: ER 15:39
DX: S16.1XXA Strain of muscle, fascia and tendon at neck level, initial encounter (principal); S09.8XXA Other specified injuries of head, initial encounter; F07.81 Postconcussional syndrome; R51 Headache; I10 Essential (primary) hypertension; F41.9 Anxiety disorder, unspecified; Z79.899 Other long term (current) drug therapy; Z85.47 Personal history of malignant neoplasm of testis; Z90.79 Acquired absence of other genital organ(s); W01.0XXA Fall on same level from slipping, tripping and stumbling without subsequent striking against object, initial encounter; Y93.89 Activity, other specified; Y92.89 Other specified places as the place of occurrence of the external cause; Y99.8 Other external cause status
CPT/HCPCS: 70450-TC; 72125-TC

== ENCOUNTER 2019-09-27 19:33 | Emergency (ER) | payer MEDICAID ==
[~2019-09-27] VITALS: Ht 170.2 cm; Wt 77.1 kg
[2019-09-27] MEDS ORDERED: LORAZEPAM 1 MG TABLET ONE (19:50)
--- NOTE | 2019-09-27 19:51 | NUR ---
BIBS FROM HOME TO ER BED 12. AAOX4. TACHYPNEIC. ANXIOUS. AMBULATORY. CAME IN FOR ANXIETY. PER PT, HE HAS BEEN FEELING ANXIOUS BECAUSE HE CANT WORK THUS MAKING HIM UNABLE TO PAY HIS BILLS. PT WAS GUIDED WITH BREATHING EXERCISE AND PROVIDED CALM QUITE ENVIROMENT WHICH HELP A LITTLE BIT. DONAVAN BARCENAS WAS AT THE BEDSIDE FOR EVAL. ORDERS RECEIVED AND WILL CARRY OUT.
[2019-09-27] MEDS ORDERED: ALPRAZOLAM 0.5 MG TABLET PO ONE (20:00)
[2019-09-27] MEDS ORDERED: LORAZEPAM 1 MG TABLET PO ONE (20:00)
[2019-09-27] MEDS ORDERED: ALPRAZOLAM 0.5 MG TABLET ONE (20:03)
--- NOTE | 2019-09-27 20:05 | NUR ---
ATIVAN 1MG PO X 1 DOSE REFUSED BY THE PT. PER PT, ATIVAN DOES NOT WORK WELL FOR HIM. XANAX 0.5MG PO X 1 DOSE GIVEN INSTEAD.
[2019-09-27 20:49] VITALS: BP 114/86
== END 2019-09-27 20:49 | disposition home or self-care (01) ==
LOC: ER 19:39
DX: F10.239 Alcohol dependence with withdrawal, unspecified (principal); F41.9 Anxiety disorder, unspecified; I10 Essential (primary) hypertension; Y90.9 Presence of alcohol in blood, level not specified; Z85.47 Personal history of malignant neoplasm of testis; Z79.899 Other long term (current) drug therapy

== ENCOUNTER 2019-10-13 02:15 | Emergency (ER) | payer MEDICAID ==
[~2019-10-13] VITALS: Ht 170.2 cm; Wt 72.6 kg
--- NOTE | 2019-10-13 02:34 | NUR ---
Pt AAOX4. Bibra [address] and [employer] from home for anxiety. Denies si/ hi. Pt admits to drinking vodka. No acute distress noted. MD at bedside for eval. Awaiting eval and orders.
[2019-10-13] MEDS ORDERED: LORAZEPAM 1 MG TABLET ONE (03:18)
[2019-10-13] MEDS ORDERED: LORAZEPAM 1 MG TABLET PO ONE (03:30)
[2019-10-13 03:40] LABS: BASOPHILS # (AUTO) 0.1 /CMM (0.0-0.2); EOSINOPHILS % (AUTO) 4.8 % (0.0-6.0); HEMATOCRIT 38 % (39-51); LYMPHOCYTES % (AUTO) 31.6 % (20.0-44.0); MEAN CORPUSCULAR HGB CONC 34 g/dl (31.0-36.0); MEAN CORPUSCULAR VOLUME 103 fL (80-96); MONOCYTES # (AUTO) 0.3 /CMM (0.1-1.30); MONOCYTES % (AUTO) 8.4 % (2.0-12.0); NEUTROPHILS # (AUTO) 1.6 /CMM (1.8-8.9); NEUTROPHILS % (AUTO) 52.2 % (43.0-81.0); PLATELET COUNT (AUTO) 239 /CMM (150-450); RED BLOOD CELL COUNT(AUTO) 3.75 MIL/uL (4.5-6.0); WHITE BLOOD COUNT (AUTO) 3.1 K/uL (4.3-11.0)
[2019-10-13 03:51] LABS: ALANINE AMINOTRANSFERASE 28 U/L (12-78); ALBUMIN 3.7 g/dL (3.4-5.0); ALCOHOL, BLOOD 306 mg/dL (0-0); ALKALINE PHOSPHATASE 69 U/L (46-116); ASPARTATE AMINOTRANSFERASE 44 U/L (15-37); BILIRUBIN,DIRECT 0.1 mg/dL (0.0-0.2); BILIRUBIN,TOTAL 0.4 mg/dL (0.2-1.0); CALCIUM, SERUM 8.3 mg/dL (8.5-10.1); CARBON DIOXIDE 24 mmol/L (21-32); CHLORIDE 103 mmol/L (98-107); GLUCOSE 135 mg/dL (74-106); POTASSIUM 3.3 mmol/L (3.5-5.1); SODIUM SERUM 140 mmol/L (136-145); TOTAL PROTEIN, SERUM 7.6 g/dL (6.4-8.2); UREA NITROGEN, BLOOD 11 mg/dL (7-18)
[2019-10-13 03:53] LABS: ACETAMINOPHEN < 2 ug/ml (10-30); SALICYLATE 0.6 mg/dL (2.8-20.0)
[2019-10-13 04:38] LABS: APPEARANCE,URINE CLEAR (CLEAR); BILIRUBIN,URINE NEGATIVE (NEGATIVE); BLOOD, URINE NEGATIVE Ery/uL (NEGATIVE); COLOR,URINE YELLOW (YELLOW); KETONES,URINE NEGATIVE (NEGATIVE); LEUKOCYTE ESTERASE ,URINE NEGATIVE (NEGATIVE); NITRITE, URINE NEGATIVE (NEGATIVE); PROTEIN,URINE TRACE mg/dl (NEGATIVE); UGLUCOSE NEGATIVE (NEGATIVE); UROBILINOGEN,URINE 0.2 EU/dL (0.2)
--- NOTE | 2019-10-13 04:38 | NUR ---
Patient is resting comfortably in bed. Easily aroused. VSS.
[2019-10-13 04:51] LABS: BACTERIA,URINE None seen /HPF (None Seen); RBC,URINE 0-2 /HPF (0-2); SQUAMOUS EPITHELIAL CELL,UR Few /HPF (None Seen); WBC,URINE 0-2 /HPF (0-3)
[2019-10-13 04:52] LABS: MUCUS,URINE Few /LPF (None Seen)
--- NOTE | 2019-10-13 05:50 | NUR ---
Patient discharged to home in stable condition. Written and verbal after care instructions given. Patient verbalizes understanding of instruction. ambulatory with a steady gait
[2019-10-13 05:51] VITALS: BP 118/68
== END 2019-10-13 05:51 | disposition home or self-care (01) ==
LOC: ER 02:16
DX: F41.9 Anxiety disorder, unspecified (principal); I10 Essential (primary) hypertension; Z60.2 Problems related to living alone
CPT/HCPCS: 36415; 80048; 80076; 80305; 80307; 80329; 81001; 85025; 99283; G0480; 81000-TC

== ENCOUNTER 2019-11-04 11:35 | Emergency (ER) | payer MEDICAID ==
[~2019-11-04] VITALS: Ht 170.2 cm; Wt 74.8 kg
[~2019-11-04 11:35] MED LIST changes: +LEVO500T23 PO; -LEVO500T75 PO
--- NOTE | 2019-11-04 11:35 | NUR ---
PT [id number], SYNCOPAL EPISODE OUTSIDE OF APARTMENT. FOREHEAD ABRASION NOTED. PT IS AAOX3, NOT IN RESPIRATORY DISTRESS, HOOKED TO CARDAIC MONITOR, KEPT RESTED AND COMFORTABLE. WILL CONTINUE TO MONITOR.
--- NOTE | 2019-11-04 11:41 | NUR ---
SEEN AND EXAMINED BY .
--- NOTE | 2019-11-04 11:45 | NUR ---
IV LINE ESTABLISHED BLOOD DRAWN AND SENT TO LAB.
[2019-11-04 11:55] LABS: BASOPHILS # (AUTO) 0.2 /CMM (0.0-0.2); BASOPHILS % (AUTO) 4.7 % (0.0-2.0); EOSINOPHILS % (AUTO) 3.3 % (0.0-6.0); HEMATOCRIT 37 % (39-51); HEMOGLOBIN 12.7 g/dL (13.5-17.5); LYMPHOCYTES # (AUTO) 1.4 /CMM (0.8-4.8); LYMPHOCYTES % (AUTO) 34.1 % (20.0-44.0); MEAN CORPUSCULAR HGB CONC 34 g/dl (31.0-36.0); MEAN CORPUSCULAR VOLUME 104 fL (80-96); MONOCYTES # (AUTO) 0.4 /CMM (0.1-1.30); NEUTROPHILS # (AUTO) 1.9 /CMM (1.8-8.9); NEUTROPHILS % (AUTO) 46.9 % (43.0-81.0); PLATELET COUNT (AUTO) 422 /CMM (150-450); RED BLOOD CELL COUNT(AUTO) 3.57 MIL/uL (4.5-6.0); WHITE BLOOD COUNT (AUTO) 4.1 K/uL (4.3-11.0)
[2019-11-04] MEDS ORDERED: IV NS 0.9% 1,000 ML BAG IV ONE (12:00)
--- NOTE | 2019-11-04 12:00 | NUR ---
URINAL GIVEN BUT UNABLE TO PROVIDE URINE SPECIMEN THIS TIME.
[2019-11-04 12:11] LABS: CALCIUM, SERUM 7.6 mg/dL (8.5-10.1); CARBON DIOXIDE 28 mmol/L (21-32); CHLORIDE 111 mmol/L (98-107); CREATININE 1.1 mg/dL (0.6-1.3); GLUCOSE 116 mg/dL (74-106); POTASSIUM 3.5 mmol/L (3.5-5.1); SODIUM SERUM 148 mmol/L (136-145); UREA NITROGEN, BLOOD 13 mg/dL (7-18)
[2019-11-04 12:15] LABS: ALANINE AMINOTRANSFERASE 30 U/L (12-78); ALBUMIN 3.2 g/dL (3.4-5.0); ASPARTATE AMINOTRANSFERASE 32 U/L (15-37); BILIRUBIN,DIRECT 0.1 mg/dL (0.0-0.2); BILIRUBIN,TOTAL 0.3 mg/dL (0.2-1.0)
[2019-11-04 12:16] LABS: ALKALINE PHOSPHATASE 71 U/L (46-116); TOTAL PROTEIN, SERUM 6.6 g/dL (6.4-8.2)
--- NOTE | 2019-11-04 13:43 | NUR ---
IV removed. Catheter intact and site benign. Pressure and 4x4 applied to site. No bleeding noted. Patient discharged to home in stable condition. Written and verbal after care instructions given to Patient and patient's friend gabe verbalizes understanding of instruction.
[2019-11-04 13:45] VITALS: BP 128/81
== END 2019-11-04 13:45 | disposition home or self-care (01) ==
LOC: ER 11:40
DX: S00.83XA Contusion of other part of head, initial encounter (principal); F10.10 Alcohol abuse, uncomplicated; R55 Syncope and collapse; I10 Essential (primary) hypertension; F41.9 Anxiety disorder, unspecified; Z60.2 Problems related to living alone; W18.39XA Other fall on same level, initial encounter; Y93.01 Activity, walking, marching and hiking; Y92.89 Other specified places as the place of occurrence of the external cause; Y99.8 Other external cause status; Y90.9 Presence of alcohol in blood, level not specified
CPT/HCPCS: 36415; 70450; 71045; 72125; 80048; 80076; 80307; 84484; 85025; 85730; 93005; 96360; 99285; J7030 ×2; G0480

== ENCOUNTER 2019-11-29 20:30 | Emergency (ER) | payer MEDICAID ==
[~2019-11-29] VITALS: Ht 170.2 cm; Wt 77.1 kg
--- NOTE | 2019-11-29 20:37 | NUR ---
PATIENT CAME TO ER STATES, "I AM WITHDRAWING FROM ALCOHOL, I HAD SOME VODKA 2 DAYS AGO". PATIENT IS SEEM HAVING TREMORS. PATIENT IS DIAPHORETIC. PATIENT IS AAOX4. NO SOB. BREATHING EVENLY AND UNLABORED ON ROOM AIR. CONNECTED TO THE FABRIC MACHINE OPERATOR.
[2019-11-29] MEDS ORDERED: CHLORDIAZEPOXIDE HCL 25 MG CAPSULE ONE (20:59)
[2019-11-29] MEDS: CHLORDIAZEPOXIDE HCL 25 MG CAPSULE PO ONE (21:03)
[2019-11-29] MEDS ORDERED: ONDANSETRON 4 MG TAB.RAPDIS ONE (21:34)
--- NOTE | 2019-11-29 21:34 | NUR ---
PATIENT VOMITTED NON-BLOODY FLUIDS. NOTIFIED.
[2019-11-29] MEDS: ONDANSETRON 4 MG TAB.RAPDIS SL ONE (21:35)
--- NOTE | 2019-11-29 21:48 | NUR ---
PATIENT IS UNABLE TO AMBULATE. PATIENT IS UNSTEADY. PATIENT FAILS TRAIL OF AMBULATION.
--- NOTE | 2019-11-29 22:17 | NUR ---
PATIENT IS SLEEPING. EASILY AROUSABLE THROUGH TOUCH AND VERBAL STIMULI. CONNECTED TO THE MONITOR. BREATHING EVENLY AND UNLABORED ON ROOM AIR. SITTER IS AT THE BEDSIDE. SIDE RAILS UP FOR SAFETY. CALL LIGHT IS WITHIN REACH.
--- NOTE | 2019-11-29 23:06 | NUR ---
PATIENT IS AMBULATORY WITH A STEADY GAIT.
--- NOTE | 2019-11-29 23:09 | NUR ---
Patient discharged to home in stable condition. Written and verbal after care instructions given. Patient verbalizes understanding of instruction.
[2019-11-29 23:10] VITALS: BP 122/68
== END 2019-11-29 23:10 | disposition home or self-care (01) ==
LOC: ER 20:38
DX: F10.239 Alcohol dependence with withdrawal, unspecified (principal); I10 Essential (primary) hypertension; F41.9 Anxiety disorder, unspecified; Z60.2 Problems related to living alone; Y90.9 Presence of alcohol in blood, level not specified
CPT/HCPCS: 99283; Q0162

== ENCOUNTER 2020-01-31 22:22 | Emergency (ER) | payer MEDICAID ==
[~2020-01-31] VITALS: Ht 170.2 cm; Wt 77.1 kg
[2020-01-31 22:30] VITALS: BP 141/86
--- NOTE | 2020-01-31 22:40 | NUR ---
PER [employer] OFFICERS, PT IS NOT ON CUSTODY.
== END 2020-01-31 22:51 | disposition home or self-care (01) ==
LOC: ER 22:23
DX: F22 Delusional disorders (principal); F10.10 Alcohol abuse, uncomplicated; I10 Essential (primary) hypertension; F41.9 Anxiety disorder, unspecified; Z60.2 Problems related to living alone; Y90.9 Presence of alcohol in blood, level not specified

== ENCOUNTER 2020-02-01 03:06 | Emergency (ER) | payer MEDICAID ==
[~2020-02-01] VITALS: Ht 170.2 cm; Wt 77.1 kg
[2020-02-01 03:14] VITALS: BP 145/82
[2020-02-01] MEDS ORDERED: ONDANSETRON 4 MG TAB.RAPDIS ONE (03:22)
[2020-02-01] MEDS ORDERED: ACETAMINOPHEN 325 MG TABLET ONE (03:22)
[2020-02-01] MEDS: ONDANSETRON 4 MG TAB.RAPDIS SL ONE (03:24)
[2020-02-01] MEDS: ACETAMINOPHEN 325 MG TABLET PO ONE (03:24)
== END 2020-02-01 03:59 | disposition home or self-care (01) ==
LOC: ER 03:07
DX: F10.10 Alcohol abuse, uncomplicated (principal); R11.0 Nausea; R51.9 Headache, unspecified; I10 Essential (primary) hypertension; F41.9 Anxiety disorder, unspecified; Y90.9 Presence of alcohol in blood, level not specified
CPT/HCPCS: 99283; Q0162

== ENCOUNTER 2020-02-01 11:15 | Emergency (ER) | payer MEDICAID ==
[~2020-02-01] VITALS: Ht 170.2 cm; Wt 77.1 kg
--- NOTE | 2020-02-01 12:00 | NUR ---
Patient awake alert hooked in the monitor non distress @ this time .
--- NOTE | 2020-02-01 13:49 | NUR ---
Patient asleep but arousable eyes open and back to sleep vitals taken and filed .
--- NOTE | 2020-02-01 17:03 | NUR ---
Patient discharged to home in stable condition. Written and verbal after care instructions given. Patient verbalizes understanding of instruction.
[2020-02-01 17:04] VITALS: BP 134/67
--- NOTE | 2020-02-01 17:04 | NUR ---
Patient awake alert patient stated calling his friend he declined snf .
== END 2020-02-01 17:05 | disposition home or self-care (01) ==
LOC: ER 11:18
DX: F10.10 Alcohol abuse, uncomplicated (principal); R41.82 Altered mental status, unspecified; I10 Essential (primary) hypertension; F41.9 Anxiety disorder, unspecified; Z60.2 Problems related to living alone; Y90.9 Presence of alcohol in blood, level not specified
CPT/HCPCS: 70450-TC

== ENCOUNTER 2020-05-27 11:20 | Inpatient (IN) | payer MEDICAID ==
[~2020-05-27] VITALS: Ht 170.2 cm; Wt 79.4 kg
--- NOTE | 2020-05-27 10:00 | NUR ---
RN NOTES CALLED RAPID RESPONSE, PATIENT NOT RESPONSIVE.
--- NOTE | 2020-05-27 10:10 | NUR ---
RN NOTES RAPID RESPONSE ENDED.
--- NOTE | 2020-05-27 11:23 | NUR ---
[id number], NEIGHBOR NOTICED PATIENT STUMBLING AROUND APARTMENT AREA, C/O WEAKNESS x 6MOS, WORSENING x COUPLE DAYS, ALSO C/O NAUSEA/VOMITING x TODAY, LAST ETOH YESTERDAY, BS 149, TO ER BED 10, HOOKED TO MONITOR, CHANGED TO HOSP GOWN, WARM BLANKET PROVIDED, PATIENT AAO x 4. NAD NOTED. AWAITING MD MUNSON
--- NOTE | 2020-05-27 11:40 | NUR ---
md at bedside-neuro assessmnet done and noted in elec. chart-pt walked several steps with assist all limbs equal and string, however adter a few steps steps veer to left side-witnessed by MD and rn -attempted to insert 2nd iv not able x2 by 2 different rn's. pt states has testicular Ca.
--- NOTE | 2020-05-27 12:00 | NUR ---
pt taken to CT
[2020-05-27 12:03] LABS: BASOPHILS # (AUTO) 0.2 /CMM (0.0-0.2); BASOPHILS % (AUTO) 3.5 % (0.0-2.0); EOSINOPHILS % (AUTO) 1.4 % (0.0-6.0); HEMATOCRIT 43 % (39-51); HEMOGLOBIN 14.7 g/dL (13.5-17.5); LYMPHOCYTES # (AUTO) 0.9 /CMM (0.8-4.8); LYMPHOCYTES % (AUTO) 19.7 % (20.0-44.0); MEAN CORPUSCULAR HGB CONC 34 g/dl (31.0-36.0); MEAN CORPUSCULAR VOLUME 103 fL (80-96); MONOCYTES # (AUTO) 0.4 /CMM (0.1-1.30); MONOCYTES % (AUTO) 9.6 % (2.0-12.0); NEUTROPHILS % (AUTO) 65.8 % (43.0-81.0); PLATELET COUNT (AUTO) 249 /CMM (150-450); RED BLOOD CELL COUNT(AUTO) 4.19 MIL/uL (4.5-6.0); WHITE BLOOD COUNT (AUTO) 4.6 K/uL (4.3-11.0)
[2020-05-27 12:10] LABS: CALCIUM, SERUM 8.2 mg/dL (8.5-10.1); CARBON DIOXIDE 14 mmol/L (21-32); CHLORIDE 100 mmol/L (98-107); CREATININE 1.3 mg/dL (0.6-1.3); GLUCOSE 132 mg/dL (74-106); POTASSIUM 3.9 mmol/L (3.5-5.1); SODIUM SERUM 137 mmol/L (136-145); UREA NITROGEN, BLOOD 26 mg/dL (7-18)
[2020-05-27 12:16] LABS: ALANINE AMINOTRANSFERASE 36 U/L (12-78); ALBUMIN 3.7 g/dL (3.4-5.0); ALKALINE PHOSPHATASE 63 U/L (46-116); ASPARTATE AMINOTRANSFERASE 96 U/L (15-37); BILIRUBIN,DIRECT 0.3 mg/dL (0.0-0.2); BILIRUBIN,TOTAL 0.8 mg/dL (0.2-1.0); TOTAL PROTEIN, SERUM 7.6 g/dL (6.4-8.2)
--- NOTE | 2020-05-27 12:19 | NUR ---
pt back from CT
--- NOTE | 2020-05-27 12:22 | NUR ---
pt c/o nausea NO vomiting-order given for 4mg Zofran IV once now-order repeated and transcribed
[2020-05-27] MEDS ORDERED: COLC0.6T67 PO (12:26)
[2020-05-27] MEDS ORDERED: ONDANSETRON HCL/PF 4 MG/2 ML VIAL IVP ONE (12:30)
[2020-05-27] MEDS ORDERED: ONDANSETRON HCL/PF 4 MG/2 ML VIAL IV ONE (12:30)
[2020-05-27] MEDS ORDERED: Thiamine 100 MG in IV D5W 50 ML IV SCH (12:30)
[2020-05-27] MEDS ORDERED: ONDANSETRON HCL/PF 4 MG/2 ML VIAL ONE (12:31)
[2020-05-27 13:00] LABS: CHOLESTEROL 156 mg/dL (<200); HDL CHOLESTEROL 60 mg/dL (40-60); LDL 63 mg/dL (0-99); TRIGLYCERIDES 281 mg/dL (30-150)
--- NOTE | 2020-05-27 13:23 | NUR ---
NURSING SUP GAVE 104.
[2020-05-27] MEDS ORDERED: ASPIRIN 325 MG TABLET PO ONE (13:30)
[2020-05-27] MEDS ORDERED: ASPIRIN 325 MG TABLET ONE (13:40)
--- NOTE | 2020-05-27 13:49 | NUR ---
REPORT GIVEN TO JESUS MANUEL NUNEZ OF TELE UNIT
--- NOTE | 2020-05-27 14:00 | NUR ---
PATIENT RECEIVED FROM ED ON ROOM AIR. ABLE TO AMBULATE WITH ASSISTANCE TO BED. PT STATES HE HAS FOGGY VISION WHEN AMBULATING SHORT DISTANCE. PT IS ALERT AND ORIENTED X 4, ON MONITOR SHOWING ST IN 100s. PATIENT SKIN INTACT. PT HAS LEFT HAND 20, RUNNING NS AT 110 ML/HR. NO SIGNS OF INFECTION OR INFILTRATION. ALL SAFETY MEASURES IN PLACE. WILL CONTINUE TO MONITOR CLOSELY
[2020-05-27] MEDS: ENOXAPARIN SODIUM 40 MG/0.4 ML DISP.SYRIN SQ SCH (15:16)
[2020-05-27] MEDS: IV NS 0.9% 1,000 ML IV PRN (15:27)
[2020-05-27 16:00] VITALS: BP 130/87
--- NOTE | 2020-05-27 16:00 | NUR ---
PT HEART RATE OBSERVED INCREASED FROM 100 TO 190, PT APPEARS UNCOMFORTABLE, FACE RED, HANDS SHAKY. ATIVAN GIVEN DIRECTED. STAT EKG ORDERED, RESULT SINUS TACH 105, DNP SHAGGY AWARE.
[2020-05-27] MEDS: LORAZEPAM INJ 2 MG/ML VIAL IV PRN ×2 (16:37→22:45)
--- NOTE | 2020-05-27 16:46 | NUR ---
Natural Resources Specialist Consult: SS consult requested; reason for consult is stroke. Per ED physicians notes, pt has had an unsteady gait for the last 2 months and pts sx have worsened within the last 2 days. Pt spoke to SW regarding the incident and pt mentioned that he was walking to his mailbox and felt his body falling to the left. Pts neighbor witnessed the incident and called 911. Pt is oriented x4. Pt appears well-groomed and maintained appropriate conversation and eye contact throughout the assessment. Pt was tearful as he discussed stressors which include trouble paying his rent due to unemployment and feelings of hopeless due to inadequate social support. Pt denies current SI, however reported hx of SI with no plan. SW assessed pts drug and ETOH use and pt mentioned he has a hx of alcoholism. Pt stated, the last time I drank was on Sunday (05/25/2020). SW reported no hx of mental illness. SW discussed the need for resources with the pt., and pt declined resources at this time. Pt mentioned that he does not have transportation and requests transportation upon d/c. SW administered the PHQ-9 and patient scored a score of 12 (moderate). SW provided the pt with a health education packet, Empowerment After Stroke. SW spoke with charge nurse, Raheem and requested a psych eval. Pt identified his mother, Isaura Figueroa as a person to notify, and provided verbal authorization for this SW to speak with patients mother. SW called the pts mother and left a voicemail.
[2020-05-27] MEDS ORDERED: ONDANSETRON HCL/PF 4 MG/2 ML VIAL IV PRN (17:00)
--- NOTE | 2020-05-27 19:00 | NUR ---
PATIENT REMAINS IN BED ROOM AIR, NO RESPIRATORY DISTRESS. LEFT HAND IV REMAINS INTACT AND FLUSHED WELL, NO SIGNS OF INFECTION OR INFILTRATION. ALL SAFETY MEASURES ENDORSED TO ONCOMING RN FOR SIRIA
--- NOTE | 2020-05-27 19:40 | NUR ---
RN OPENING NOTES RECEIVED PT IN BED. A/O X4, ON ROOM AIR. TOLERATING WELL. NO SOB OR RESPIRATORY DISTRESS NOTED AT THIS TIME. PT SATURATING AT 96 PT IS ON TELE MONITOR PT HR 118, ST BASELINE TO PT. PT HAS IV ON LEFT HAND, FLUSHED. NO S/S OF INFILTRATION. RUNNING NS IVF 0.9% AT 110ML/HR ORDERED. PT DENIES PAIN AT THIS TIME. COMPLAINS OF SOME NAUSEA, PT VERBALIZED MEDICATION ADMINISTERED PREVIOUSLY, IS EFFECTIVE, AT THIS TIME PT REMAINS WITH COLD COMPRESS ON HEAD. WITH LIGHTS DIMMED, PT VERBALIZES BEING CONTENT FOR TIME BEING. SLIGHT SHAKINESS NOTED. BASELINE TO PT. SAFETY MEASURES IN PLACE, HOB ELEVATED TOLERATED. BED LOCKED IN LOWEST POSITION. SIDE RAILS UP X2. CALL LIGHT WITHIN REACH. WILL CONT TO MONITOR.
[2020-05-27 20:00] VITALS: BP 139/82
[2020-05-27] MEDS: SIMVASTATIN 20 MG TABLET PO SCH (22:34)
--- NOTE | 2020-05-27 22:55 | NUR ---
PT HAS INCREASED SHAKING PRESENT, PT VERBALIZES HE IS ANXIOUS AND REQUESTS MEDICATION. PREVIOUSLY EFFECTIVE. PRN ATIVAN ADMINISTERED ORDERED. WILL CONT TO CLOSELY MONITOR.
[2020-05-28] VITALS: BP 144/88
--- NOTE | 2020-05-28 02:33 | NUR ---
PT REMAINS IN BED, RESTING WITH HR 100 AT THIS TIME, NO DISTRESS NOTED. NEEDS ATTENDED WILL CONT TO MONITOR CLOSELY.
[2020-05-28] MEDS: IV NS 0.9% 1,000 ML IV PRN ×2 (03:57→20:46)
[2020-05-28 04:00] VITALS: BP 152/92
[2020-05-28] MEDS: LORAZEPAM INJ 2 MG/ML VIAL IV PRN ×4 (04:46→19:51)
[2020-05-28 06:11] LABS: BASOPHILS # (AUTO) 0.1 /CMM (0.0-0.2); BASOPHILS % (AUTO) 1.1 % (0.0-2.0); EOSINOPHILS % (AUTO) 1.7 % (0.0-6.0); HEMATOCRIT 37 % (39-51); HEMOGLOBIN 12.8 g/dL (13.5-17.5); LYMPHOCYTES # (AUTO) 0.8 /CMM (0.8-4.8); LYMPHOCYTES % (AUTO) 11.6 % (20.0-44.0); MEAN CORPUSCULAR HGB CONC 35 g/dl (31.0-36.0); MEAN CORPUSCULAR VOLUME 101 fL (80-96); MONOCYTES # (AUTO) 0.4 /CMM (0.1-1.30); MONOCYTES % (AUTO) 5.3 % (2.0-12.0); NEUTROPHILS # (AUTO) 5.7 /CMM (1.8-8.9); NEUTROPHILS % (AUTO) 80.3 % (43.0-81.0); PLATELET COUNT (AUTO) 177 /CMM (150-450); RED BLOOD CELL COUNT(AUTO) 3.65 MIL/uL (4.5-6.0); WHITE BLOOD COUNT (AUTO) 7.1 K/uL (4.3-11.0)
--- NOTE | 2020-05-28 06:26 | NUR ---
RN CLOSING NOTES PT REMAINS IN BED, RESTING. NO SIGNIFICANT CHANGES IN PT CONDITION, PT WAS COOPERATIVE WITH CARE. NO N/V NOTED DURING MY SHIFT. PT STILL ON ROOM AIR, NO RESP DISTRESS NOTED. NO SOB AT THIS TIME. STILL REMAINS WITH SINUS TACH, HR OF 108. NEW IV SITE LEFT FOREARM RUNNING WITH IVF NS 0.9% AT 110ML/HR. NO S/S OF INFILTRATION NOTED. PT STILL NOTED TO BE SHAKING SLIGHTLY. ATIVAN PRN ADMINISTERED, PT VERBALIZES IT IS EFFECTIVE. ALL DUE MEDS GIVEN, NEEDS ATTENDED. SAFETY MEASURES IN PLACE. HOB ELEVATED. SIDE RAILS X2, BED LOCKED IN LOWEST POSITION WITH BED ALARM DEPARTMENT ASSISTANT LIGHT WITHIN REACH. WILL ENDORSE TO DAY NURSE FOR CONTINUATION OF CARE.
[2020-05-28 06:27] LABS: CALCIUM, SERUM 8.1 mg/dL (8.5-10.1); CREATININE 1.3 mg/dL (0.6-1.3); POTASSIUM 3.5 mmol/L (3.5-5.1)
[2020-05-28 08:00] VITALS: BP 151/96
--- NOTE | 2020-05-28 08:00 | NUR ---
PATIENT RECEIVED IN BED, ON ROOM AIR, NO SIGNS OF DISTRESS. PATIENT IS ALERT AND ORIENTED X 3. PATIENT IS BEDREST WITH UNSTEADY GAIT. PATIENT IV ACCESS INTACT, RUNNING NS AT 110 ML/HR, NO SIGNS OF INFECTION OR INFILTRATION. ALL SAFETY MEASURES IN PLACE. WILL CONTINUE TO MONITOR CLOSELY
[2020-05-28] MEDS: THIAMINE HCL 100 MG TABLET PO SCH (08:19)
[2020-05-28] MEDS: PANTOPRAZOLE 40 MG TABLET.DR PO SCH (08:19)
[2020-05-28] MEDS: ENOXAPARIN SODIUM 40 MG/0.4 ML DISP.SYRIN SQ SCH (08:19)
[2020-05-28] MEDS: FOLIC ACID 1 MG TABLET PO SCH (08:19)
[2020-05-28] MEDS: ASPIRIN EC 81 MG TABLET.DR PO SCH (08:19)
[2020-05-28] MEDS: COLCHICINE 0.6 MG TABLET PO SCH (08:19)
[2020-05-28] MEDS ORDERED: ASPIRIN EC 325 MG TABLET.DR PO SCH (09:00)
[2020-05-28 12:00] VITALS: BP 145/103
[2020-05-28 16:00] VITALS: BP 133/90
--- NOTE | 2020-05-28 16:38 | NUR ---
MICHAEL Coordination of Care: SW discussed patients needs for community resources, and assisted patient with identifying the need for the following: resources for transportation and outpatient mental health. Pt was provided with forms for [employer] [facility]. SW also provided a list of outpatient therapy resources. SW filed copies of the resources in the patients chart. Per patient request, MICHAEL called the patients mother Isaura Fgiueroa and left her a voicemail, asking for a call back to discuss the patients transportation.
--- NOTE | 2020-05-28 19:12 | NUR ---
RN NOTE RECEIVED PT IN BED AWAKE AND ALERT/ORIENTED X 4. ON ROOM AIR. RESPIRATIONS UNLABORED. ST ON THE WRAPPER OPERATOR. PT HAS IV ON LEFT HAND AND LEFT FOREARM WITH NS RUNNING AT 110ML/HR ORDERED. BOTH IV SITES PATENT AND INTACT. PT DENIES PAIN AT THIS TIME. PT WITH MINIMAL TREMORS NOTED. LIGHTS DIMMED PER PT REQUEST, PLAN OF CARE DISCUSSED, SAFETY MEASURES IN PLACE PER PROTOCOL, URINAL REACHABLE AT BEDSIDE, HOB ELEVATED. BED LOCKED AND IN LOWEST POSITION. SIDE RAILS UP X2. CALL LIGHT WITHIN REACH, WILL MONITOR PATIENT. Addendum: 05/29/20 at 0639 by DAIN GODWIN RN ERROR. PT DOES NOT HAVE IV ON LEFT HAND.
--- NOTE | 2020-05-28 19:34 | NUR ---
PATIENT REMAINS IN BED NO ACUTE CHANGE IN CONDITION. ENDORSEMENT MADE TO FOLLOW UP WITH AM MD TO POSSIBLY ADJUST AM MEDICATION FOR GOUT. PATIENT GIVEN ATIVAN DIRECTED THIS SHIFT. PATIENT REPORTS IMPROVEMENT WITH APPETITE, CONSUMING APPROXIMATELY 60% FOR DINNER. NO BM THIS SHIFT. ALL SAFETY MEASURES IN PLACE .REPORT GIVEN TO ONCOMING RN FOR SIRIA
[2020-05-28 20:00] VITALS: BP 133/90
[2020-05-28] MEDS: SIMVASTATIN 20 MG TABLET PO SCH (21:47)
[2020-05-29] VITALS: BP 144/98
[2020-05-29 04:00] VITALS: BP 135/94
[2020-05-29] MEDS: IV NS 0.9% 1,000 ML IV PRN ×2 (04:33→13:45)
[2020-05-29] MEDS: LORAZEPAM INJ 2 MG/ML VIAL IV PRN (04:37)
[2020-05-29 06:25] LABS: BASOPHILS % (AUTO) 0.7 % (0.0-2.0); EOSINOPHILS % (AUTO) 1.8 % (0.0-6.0); HEMATOCRIT 32 % (39-51); HEMOGLOBIN 10.9 g/dL (13.5-17.5); LYMPHOCYTES # (AUTO) 0.6 /CMM (0.8-4.8); LYMPHOCYTES % (AUTO) 10.6 % (20.0-44.0); MEAN CORPUSCULAR HGB CONC 35 g/dl (31.0-36.0); MEAN CORPUSCULAR VOLUME 101 fL (80-96); MONOCYTES # (AUTO) 0.4 /CMM (0.1-1.30); NEUTROPHILS # (AUTO) 4.5 /CMM (1.8-8.9); NEUTROPHILS % (AUTO) 79.9 % (43.0-81.0); PLATELET COUNT (AUTO) 120 /CMM (150-450); RED BLOOD CELL COUNT(AUTO) 3.14 MIL/uL (4.5-6.0); WHITE BLOOD COUNT (AUTO) 5.7 K/uL (4.3-11.0)
--- NOTE | 2020-05-29 06:37 | NUR ---
RN NOTE NO ACUTE CHANGES OBSERVED OVERNIGHT. PT SLEEPING IN BED WITH HEAD OF BED ELEVATED. ON ROOM AIR AND IN NO APPARENT DISTRESS. RESPIRATIONS EVEN AND UNLABORED, PT HAS NS @ 110ML/HOUR ORDERED VIA LEFT FOREARM. SITE WITHOUT SIGNS OF INFECTION OR INFILTRATION. SAFETY MEASURES IN PLACE, URINAL AT BEDSIDE, CALL LIGHT WITHIN REACH, ALL NEEDS MET AND ATTENDED TO.
[2020-05-29 06:49] LABS: CALCIUM, SERUM 7.4 mg/dL (8.5-10.1); CREATININE 0.9 mg/dL (0.6-1.3); POTASSIUM 3.3 mmol/L (3.5-5.1)
--- NOTE | 2020-05-29 07:41 | NUR ---
RN OPENING NOTE PATIENT IS IN BED RESTING. PATIENT IS IN NO ACUTE DISTRESS. PATIENT IS ON ROOM AIR, TOLERATING WELL. NO SOB NOTED. PATIENT IS ON TELE MONITOR READING SINUS TACHY 103. SAFETY PRECAUTIONS ARE ON. BED IN THE LOWEST POSITION. SIDE RAILS ARE UP, CALL LIGHT WITHIN. WILL CONTINUE TO MONITOR CLOSELY THROUGHOUT THE SHIFT.
[2020-05-29 08:00] VITALS: BP 136/87
[2020-05-29] MEDS: FOLIC ACID 1 MG TABLET PO SCH (08:13)
[2020-05-29] MEDS: PANTOPRAZOLE 40 MG TABLET.DR PO SCH (08:13)
[2020-05-29] MEDS: THIAMINE HCL 100 MG TABLET PO SCH (08:13)
[2020-05-29] MEDS: ASPIRIN EC 81 MG TABLET.DR PO SCH (08:13)
[2020-05-29] MEDS: COLCHICINE 0.6 MG TABLET PO SCH (08:13)
[2020-05-29] MEDS: ENOXAPARIN SODIUM 40 MG/0.4 ML DISP.SYRIN SQ SCH (08:14)
[2020-05-29] MEDS ORDERED: POTASSIUM CHLORIDE 20 MEQ TAB.PRT.SR PO ONE (09:30)
[2020-05-29] MEDS: HYDROCODONE/APAP 5/325MG TABLET PO PRN ×2 (09:56→21:14)
[2020-05-29] MEDS ORDERED: methylPREDNISolone (4MG) 4 MG TABLET (DAY #1 ) PO ONE (11:00)
[2020-05-29] MEDS ORDERED: methylPREDNISolone DOSPAK(4MG) 1 PACK TAB.DS.PK PO ONE (11:00)
[2020-05-29 12:00] VITALS: BP 131/84
[2020-05-29] MEDS ORDERED: methylPREDNISolone (4MG) 4 MG TABLET (DAY #1, PC LUNCH) PO ONE (12:30)
[2020-05-29 16:00] VITALS: BP 133/88
[2020-05-29] MEDS ORDERED: methylPREDNISolone (4MG) 4 MG TABLET (DAY #1 PC DINNER) PO ONE (17:30)
--- NOTE | 2020-05-29 18:45 | NUR ---
RN CLOSING NOTE PATIENT IS IN BED RESTING. PATIENT IS IN NO ACUTE DISTRESS. PATIENT IS ON ROOM AIR, TOLERATING WELL. NO SOB NOTED. PATIENT IS ON TELE MONITOR READING SINUS TACHY 104. SAFETY PRECAUTIONS ARE ON. BED IN THE LOWEST POSITION. SIDE RAILS ARE UP, CALL LIGHT WITHIN. ENDORSE PATIENT TO SENIOR RESEARCH FELLOW NURSE FOR SIRIA.
--- NOTE | 2020-05-29 19:11 | NUR ---
MS RN: CONTINUITY OF CARE Patient in bed, A/O x4. IVF infusing. Patient reports mild right hand pain, able to move, no swelling. Looks calm and relax. Covid 19 rapid test negative result 06/06/20. Fall precaution maintained.
[2020-05-29 20:00] VITALS: BP 141/91
[2020-05-29] MEDS: SIMVASTATIN 20 MG TABLET PO SCH (21:12)
[2020-05-29] MEDS ORDERED: methylPREDNISolone (4MG) 4 MG TABLET (DAY1,HS) PO ONE (22:00)
[2020-05-30] MEDS: IV NS 0.9% 1,000 ML IV PRN (01:31)
[2020-05-30 04:45] VITALS: BP 138/89
[2020-05-30 06:20] LABS: CALCIUM, SERUM 7.7 mg/dL (8.5-10.1); CREATININE 0.9 mg/dL (0.6-1.3); POTASSIUM 3.7 mmol/L (3.5-5.1)
--- NOTE | 2020-05-30 06:24 | NUR ---
MS RN: END OF SHIFT REPORT Stable oxygen saturation on room air. Ambulate to the bathroom, x1 assist. Right hand pain managed with Hellier with relief. IVF infusing. No c/o N/V, no headache. NIH stroke scale QS, score zero. On ASA, statins, lovenox. Will endorse to oncoming RN.
--- NOTE | 2020-05-30 07:25 | NUR ---
MS RN NOTE PATIENT IN BED ALERT ORIENTED X3 NO SOB NOTED AT THIS TIME , ON RA , LT FA HL INTACT AND FLUSHED WELL ,ON IVF ORDERED ,BED IN LOWEST AND LOCKED POSITION ,SIT AT EDGE OF BED WANT TO AMBULATE AT THIS TIME , WILL ASSIST TO AMBULATE LATTER ON BED IN LOWEST AND LOCKED POSITION , CALL LIGHT WITHIN REACH, WILL CONT TO MONITOR CLOSELY
[2020-05-30] MEDS ORDERED: methylPREDNISolone (4MG) 4 MG TABLET (DAY#2 ACB) PO ONE (07:30)
[2020-05-30] MEDS: PANTOPRAZOLE 40 MG TABLET.DR PO SCH (07:43)
[2020-05-30 08:00] VITALS: BP 154/99
[2020-05-30] MEDS: ASPIRIN EC 81 MG TABLET.DR PO SCH (08:40)
[2020-05-30] MEDS: FOLIC ACID 1 MG TABLET PO SCH (08:40)
[2020-05-30] MEDS: THIAMINE HCL 100 MG TABLET PO SCH (08:40)
[2020-05-30] MEDS: COLCHICINE 0.6 MG TABLET PO SCH (08:40)
[2020-05-30] MEDS: ENOXAPARIN SODIUM 40 MG/0.4 ML DISP.SYRIN SQ SCH (08:41)
--- NOTE | 2020-05-30 09:19 | NUR ---
MS RN NOTE ASSISTED TO BR ,ABLE TO MAKE BM, KEEP CLEAN DRY, ALL NEEDS ATTENDED , CALL LIGHT WITHIN REACH
--- NOTE | 2020-05-30 11:55 | NUR ---
MS RNNOTE AMBULATED WELL WITH ASSISTANCE, LORENA NUNEZ DNP AT BEDSIDE, AWARE THAT EARLIER BP WAS 154/99 ,NO NEW ORDER GIVEN AT THIS TIME
[2020-05-30] MEDS ORDERED: methylPREDNISolone (4MG) 4 MG TABLET (DAY#2,PC LUNCH) PO ONE (12:30)
--- NOTE | 2020-05-30 14:15 | NUR ---
ms rn note seen by dr rolle neurologist patient condition updated
[2020-05-30] MEDS: HYDROCODONE/APAP 5/325MG TABLET PO PRN (15:49)
[2020-05-30 16:00] VITALS: BP 148/94
[2020-05-30] MEDS ORDERED: INFLUENZA VACCINE 2020-21 0.5 ML DISP.SYRIN IM ONE (16:00)
[2020-05-30] MEDS ORDERED: methylPREDNISolone (4MG) 4 MG TABLET (DAY#2, PC DINNER) PO ONE (17:30)
--- NOTE | 2020-05-30 17:35 | NUR ---
MS RN NOTE AMBULATED WELL TO BR UNDER SUPERVISION, NO C\O PAIN OR DISCOMFORT , ABLE TO EAT SELF NOT IN DISTRESS
[2020-05-30] MEDS: LORAZEPAM INJ 2 MG/ML VIAL IV PRN (18:00)
--- NOTE | 2020-05-30 18:27 | NUR ---
ms rahman note feels anxious and shaking Ativan 1 mg ivp given as ordered bp 148/94 saturation 97%, will cont to monitor Addendum: 05/30/20 at 1856 by SHASHI JURADO RN resting comfortably after activa ivp given , not in distress, call light within reach
[2020-05-30 20:00] VITALS: BP 143/87
--- NOTE | 2020-05-30 20:00 | NUR ---
RN NOTE RECEIVED PT IN BED A/A/O X3, ON RA SATING 97%, THERE IS NO S/S OF DISTRESS. SAFETY MEASURES IN PLACE.
[2020-05-30] MEDS ORDERED: methylPREDNISolone (4MG) 4 MG TABLET (DAY#2, HS) PO ONE (21:00)
[2020-05-30] MEDS: SIMVASTATIN 20 MG TABLET PO SCH (21:53)
[2020-05-31] MEDS: LORAZEPAM INJ 2 MG/ML VIAL IV PRN ×3 (00:19→11:53)
[2020-05-31 04:00] VITALS: BP 141/82
[2020-05-31 06:56] LABS: BASOPHILS % (AUTO) 0.2 % (0.0-2.0); EOSINOPHILS % (AUTO) 0.1 % (0.0-6.0); HEMATOCRIT 31 % (39-51); HEMOGLOBIN 10.5 g/dL (13.5-17.5); LYMPHOCYTES # (AUTO) 0.6 /CMM (0.8-4.8); LYMPHOCYTES % (AUTO) 5.8 % (20.0-44.0); MEAN CORPUSCULAR HGB CONC 34 g/dl (31.0-36.0); MEAN CORPUSCULAR VOLUME 102 fL (80-96); MONOCYTES # (AUTO) 0.6 /CMM (0.1-1.30); MONOCYTES % (AUTO) 5.8 % (2.0-12.0); NEUTROPHILS # (AUTO) 8.7 /CMM (1.8-8.9); NEUTROPHILS % (AUTO) 88.1 % (43.0-81.0); PLATELET COUNT (AUTO) 129 /CMM (150-450); RED BLOOD CELL COUNT(AUTO) 3.05 MIL/uL (4.5-6.0); WHITE BLOOD COUNT (AUTO) 9.8 K/uL (4.3-11.0)
[2020-05-31 07:11] LABS: MAGNESIUM 1.7 mg/dL (1.8-2.4); POTASSIUM 3.7 mmol/L (3.5-5.1)
[2020-05-31 07:13] LABS: THYROID STIMULATING HORMONE 2.773 uIU/mL (0.358-3.74); URIC ACID 6.3 mg/dL (2.6-7.2)
[2020-05-31] MEDS: PANTOPRAZOLE 40 MG TABLET.DR PO SCH (07:27)
--- NOTE | 2020-05-31 07:27 | NUR ---
RN NOTE PT REMAINED STABLE DURING MY SHIFT , REPORT GIVEN TO ONCOMING SHIFT FOR SIRIA.
[2020-05-31] MEDS ORDERED: methylPREDNISolone (4MG) 4 MG TABLET (DAY#3,ACB) PO ONE (07:30)
--- NOTE | 2020-05-31 07:57 | NUR ---
DISTRIBUTION SPEC NOTE PATIENT IS IN BED WITH HOB AT SEMI FOWLERS POSITION. PATIENT IS CURRENTLY ON ROOM AIR WITH NO SIGNS OF LABORED BREATHING. PATIENT IS AOX3. SKIN IS INTACT. LFA #20 IS PATENT, INTACT, AND HAS NO SIGNS OF LABORED BREATHING. BED IS LOCKED IN THE LOWEST POSITION, 3 GUARD RAILS RAISED, CALL GR WITHIN REACH, AND ALL HOSPITAL SAFETY PRECAUTIONS ARE BEING FOLLOWED. WILL CONTINUE TO MONITOR THROUGHOUT SHIFT.
[2020-05-31] MEDS: THIAMINE HCL 100 MG TABLET PO SCH (08:04)
[2020-05-31] MEDS: COLCHICINE 0.6 MG TABLET PO SCH (08:04)
[2020-05-31] MEDS: ASPIRIN EC 81 MG TABLET.DR PO SCH (08:04)
[2020-05-31] MEDS: FOLIC ACID 1 MG TABLET PO SCH (08:04)
[2020-05-31] MEDS: ENOXAPARIN SODIUM 40 MG/0.4 ML DISP.SYRIN SQ SCH (08:06)
--- NOTE | 2020-05-31 09:00 | NUR ---
CONDUIT MECHANIC NOTE NOTIFIED DR. GUO OF PATIENT'S BP OF 124/69 AND HR OF 82 WITH AMIODARONE, METOPROLOL, LISINOPRIL, AND SPIRONOLACTONE ALL DUE. ADVISED TO ADMINISTER MEDICATIONS BY DR. GUO.
[2020-05-31] MEDS ORDERED: NEUTRA PHOS 1 POWD.PACKET PO ONE (10:00)
[2020-05-31] MEDS: Magnesium 1GM/D5W 100ML PREMIX 100 ML IV SCH ×2 (10:26→11:34)
[2020-05-31] MEDS ORDERED: ASPI-1169 PO (11:21)
[2020-05-31] MEDS ORDERED: METH4TAB3 PO (11:21)
[2020-05-31] MEDS ORDERED: THIA100T88 PO (11:21)
[2020-05-31] MEDS ORDERED: SIMV20TA2 PO (11:21)
[2020-05-31 12:00] VITALS: BP 173/108
[2020-05-31] MEDS ORDERED: methylPREDNISolone (4MG) 4 MG TABLET (DAY#3,PC LUNCH) PO ONE (12:30)
[2020-05-31] MEDS ORDERED: methylPREDNISolone (4MG) 4 MG TABLET (DAY#3,PC DINNER) PO ONE (17:30)
[2020-05-31] MEDS ORDERED: methylPREDNISolone (4MG) 4 MG TABLET (DAY#3, HS) PO ONE (22:00)
[2020-06-01] MEDS ORDERED: methylPREDNISolone (4MG) 4 MG TABLET (DAY #4, ACB) PO ONE (07:30)
[2020-06-01] MEDS ORDERED: methylPREDNISolone (4MG) 4 MG TABLET (DAY #4, PC LUNCH) PO ONE (12:30)
[2020-06-01] MEDS ORDERED: methylPREDNISolone (4MG) 4 MG TABLET (DAY#4 HS) PO ONE (22:00)
[2020-06-02] MEDS ORDERED: methylPREDNISolone (4MG) 4 MG TABLET (DAY#5, ACB) PO ONE (07:30)
[2020-06-02] MEDS ORDERED: methylPREDNISolone (4MG) 4 MG TABLET (DAY#5,HS) PO ONE (22:00)
[2020-06-03] MEDS ORDERED: methylPREDNISolone (4MG) 4 MG TABLET (DAY#6,ACB) PO ONE (07:30)
== END 2020-05-31 17:10 | disposition home or self-care (01) | DRG 47 ==
LOC: ER 11:24 → TELE1 13:39 → MEDSG1 05-29 08:02
PROVIDERS: ADMIT Nurse Practitioner Acute Care; ATTEND Nurse Practitioner Acute Care
DX: G45.9 Transient cerebral ischemic attack, unspecified (principal); N17.0 Acute kidney failure with tubular necrosis; I10 Essential (primary) hypertension; Z85.47 Personal history of malignant neoplasm of testis; R27.0 Ataxia, unspecified; E03.9 Hypothyroidism, unspecified; E66.01 Morbid (severe) obesity due to excess calories; E78.1 Pure hyperglyceridemia; E87.6 Hypokalemia; Z87.01 Personal history of pneumonia (recurrent); M10.9 Gout, unspecified; F32.9 Major depressive disorder, single episode, unspecified; Z20.822 Contact with and (suspected) exposure to COVID-19; D75.89 Other specified diseases of blood and blood-forming organs; N13.9 Obstructive and reflux uropathy, unspecified; F10.10 Alcohol abuse, uncomplicated
CPT/HCPCS: 36415; 70450-TC; 71045-TC; 80048-TC; 80061-TC; 80076-TC; 83735-TC; 84100-TC; 84436-TC; 84443-TC; 84484-TC; 84550-TC; 85025-TC; 85652-TC; 85730-TC; 87081-TC; 92526; 92611-TC; 93307-TC; 97112-TC; 97116-TC; 97530-TC; C9803; G0378; J1650; J2060; J2405; J3411; J3475; J7030; J7050; J7060; J7509; Q2036

== ENCOUNTER 2020-06-09 17:49 | Inpatient (IN) | payer MEDICAID ==
[~2020-06-09] VITALS: Ht 170.2 cm; Wt 72.2 kg
[~2020-06-09 17:49] MED LIST changes: +ASPI-1169 PO; +COLC0.6T67 PO; -LEVO500T23 PO; +METH4TAB3 PO; +SIMV20TA2 PO; +THIA100T88 PO
[2020-06-09] MEDS ORDERED: FAMOTIDINE/PF INJ 20 MG/2 ML VIAL IV ONE ×2 (18:00→18:33)
[2020-06-09] MEDS ORDERED: MAG HYDROX/AL HYDROX/SIMETH 30 ML UDC PO ONE (18:00)
[2020-06-09] MEDS ORDERED: IV NS 0.9% 1,000 ML BAG IV ONE ×2 (18:00→19:30)
[2020-06-09] MEDS ORDERED: LIDOCAINE VISCOUS 2% UD 15 ML UDC MM ONE (18:00)
--- NOTE | 2020-06-09 18:00 | NUR ---
PT BIBRA FROM HOME TO ER BED 04 C/O EPIGAASTRIC AREA BURNING PAIN W/ NAUSEA AND VOMITING SINCE THIS MORNING. PT ADMITS TO ETOH. ALSO ENDORSES THAT HE FELL EARLIER AND POSSIBLY HIT HIS HEAD. NO OBVIOUS TRAUMA NOTED. 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 AWAITING MD MUNSON.
--- NOTE | 2020-06-09 18:01 | NUR ---
DR FISCHER AT BEDSIDE FOR EVAL.
--- NOTE | 2020-06-09 18:25 | NUR ---
IV LINE STARTED BLOOD DRAWN AND SENT TO LAB.
[2020-06-09 18:30] LABS: BASOPHILS # (AUTO) 0.2 /CMM (0.0-0.2); EOSINOPHILS % (AUTO) 1.8 % (0.0-6.0); HEMATOCRIT 40 % (39-51); HEMOGLOBIN 13.6 g/dL (13.5-17.5); LYMPHOCYTES % (AUTO) 23.3 % (20.0-44.0); MEAN CORPUSCULAR HGB CONC 34 g/dl (31.0-36.0); MEAN CORPUSCULAR VOLUME 101 fL (80-96); MONOCYTES # (AUTO) 0.4 /CMM (0.1-1.30); MONOCYTES % (AUTO) 9.2 % (2.0-12.0); NEUTROPHILS # (AUTO) 2.7 /CMM (1.8-8.9); NEUTROPHILS % (AUTO) 61.7 % (43.0-81.0); PLATELET COUNT (AUTO) 410 /CMM (150-450); RED BLOOD CELL COUNT(AUTO) 3.98 MIL/uL (4.5-6.0); WHITE BLOOD COUNT (AUTO) 4.4 K/uL (4.3-11.0)
[2020-06-09] MEDS ORDERED: LORAZEPAM INJ 2 MG/ML VIAL IV ONE ×2 (18:30→19:30)
[2020-06-09] MEDS ORDERED: LORAZEPAM INJ 2 MG/ML VIAL ONE ×2 (18:30→19:35)
[2020-06-09] MEDS ORDERED: MAG HYDROX/AL HYDROX/SIMETH 30 ML UDC ONE (18:31)
[2020-06-09] MEDS ORDERED: LIDOCAINE VISCOUS 2% UD 15 ML UDC ONE (18:31)
[2020-06-09 18:39] LABS: CALCIUM, SERUM 8.4 mg/dL (8.5-10.1); CREATININE 1.5 mg/dL (0.6-1.3); POTASSIUM 4.2 mmol/L (3.5-5.1)
--- NOTE | 2020-06-09 18:40 | NUR ---
U/S TECH AT BEDSIDE FOR GALLBLADDER ULTRASOUND.
[2020-06-09 18:44] LABS: ALCOHOL, BLOOD 339 mg/dL (0-0)
[2020-06-09 18:45] LABS: ALBUMIN 3.7 g/dL (3.4-5.0); BILIRUBIN,DIRECT 0.1 mg/dL (0.0-0.2); BILIRUBIN,TOTAL 0.3 mg/dL (0.2-1.0); TOTAL PROTEIN, SERUM 7.8 g/dL (6.4-8.2)
--- NOTE | 2020-06-09 19:10 | NUR ---
EREPORT GIVEN TO GUMARO NUNEZ FOR SIRIA.
--- NOTE | 2020-06-09 19:16 | NUR ---
BACK FROM CT
--- NOTE | 2020-06-09 20:28 | NUR ---
REPOERT GIVEN TO MARLENE ON THIRD FLOOR
[2020-06-09] MEDS ORDERED: MAG HYDROX/AL HYDROX/SIMETH 30 ML UDC PO PRN (21:00)
[2020-06-09] MEDS ORDERED: Z GUARD REMEDY 2 OZ OINT TP PRN (21:00)
[2020-06-09] MEDS ORDERED: MAGNESIUM HYDROXIDE 30 ML UDC PO PRN (21:00)
[2020-06-09] MEDS ORDERED: ACETAMINOPHEN 325 MG TABLET PO PRN (21:00)
[2020-06-09] MEDS ORDERED: TEMAZEPAM 15 MG CAPSULE PO PRN (21:00)
--- NOTE | 2020-06-09 21:09 | NUR ---
PT WAS TANSFERRED TO THE THIRD FLOOR IN STABLE CONDITION.
[2020-06-09 21:20] VITALS: BP 134/95
[2020-06-09] MEDS: IV NS 0.9% 1,000 ML IV PRN (22:36)
[2020-06-09] MEDS: LORAZEPAM INJ 2 MG/ML VIAL IV PRN (22:36)
--- NOTE | 2020-06-09 22:50 | NUR ---
MS/RN NOTES PATIENT STATED FEELINGS OF ANXIETY AND RESTLESS. PATIENT GIVEN ATIVAN 1 MG IVP. PATIENT V/S ARE STABLE. WILL CONTINUE TO MONITOR.
--- NOTE | 2020-06-09 23:00 | NUR ---
MS/RN OPENING NOTES RECEIVED REPORT FROM ED RN GUMARO AT 2024HRS FOR PATIENT WILL BE COMING TO ROOM 321-2. PATIENT ARRIVED ON UNIT AT 2115HRS. PATIENT SUSTAINED NO INJURIES DURING TRANSPORT. PATIENT ABLE TO AMBULATE TO BED WITH ASSIST STAND BY. PATIENT IS ALERT AND ORIENTED X 4. PATIENTS BREATHING IS EVEN AND UNLABORED. PATIENT SHOWS NO SIGNS OF RESPIRATORY DISTRESS. PATIENT STATES MILD HEADACHE, DENIES CHEST PAIN. PATIENT STABLE ON ROOM AIR. PATIENT SKIN INTACT. PATIENT SIGNED BELONGINGS LIST. IV ACCESS INTACT FLUSHING WELL. SAFETY MEASURES ARE IN PLACE. BED IS LOCKED AND PLACED IN THE LOW POSITION, SIDE RAILS UP X 2, CALL LIGHT IS WITHIN REACH. WILL CONTINUE WITH PATIENT PLAN OF CARE.
[2020-06-10] MEDS: LORAZEPAM INJ 2 MG/ML VIAL IV PRN ×4 (03:20→20:04)
[2020-06-10] MEDS: ONDANSETRON HCL/PF 4 MG/2 ML VIAL IVP PRN ×2 (05:43→08:38)
--- NOTE | 2020-06-10 06:35 | NUR ---
MS/RN CLOSING NOTES PATIENT IN BED RESTING. PATIENT IS ALERT AND ORIENTED X 4. PATIENT IS ON ROOM AIR SATURATING WELL. PATIENT IN NO APPARENT RESPIRATORY DISTRESS NOTED. NO COMPLAINED OF PAIN NOTED AT THIS TIME. PATIENT RIGHT HAND 22G IV RUNNING NS AT 125CC / HR. SAFETY MEASURES ARE IN PLACE, CALL LIGHT WITHIN REACH. WILL ENDORSE CARE TO DAY SHIFT NURSE.
[2020-06-10] MEDS: IV NS 0.9% 1,000 ML IV PRN ×2 (06:48→17:48)
[2020-06-10 07:03] LABS: BASOPHILS # (AUTO) 0.1 /CMM (0.0-0.2); BASOPHILS % (AUTO) 1.7 % (0.0-2.0); EOSINOPHILS % (AUTO) 0.8 % (0.0-6.0); HEMATOCRIT 32 % (39-51); HEMOGLOBIN 10.8 g/dL (13.5-17.5); LYMPHOCYTES # (AUTO) 0.5 /CMM (0.8-4.8); LYMPHOCYTES % (AUTO) 8.8 % (20.0-44.0); MEAN CORPUSCULAR HGB CONC 34 g/dl (31.0-36.0); MEAN CORPUSCULAR VOLUME 102 fL (80-96); MONOCYTES # (AUTO) 0.5 /CMM (0.1-1.30); MONOCYTES % (AUTO) 8.5 % (2.0-12.0); NEUTROPHILS # (AUTO) 4.3 /CMM (1.8-8.9); NEUTROPHILS % (AUTO) 80.2 % (43.0-81.0); PLATELET COUNT (AUTO) 253 /CMM (150-450); RED BLOOD CELL COUNT(AUTO) 3.08 MIL/uL (4.5-6.0); WHITE BLOOD COUNT (AUTO) 5.4 K/uL (4.3-11.0)
[2020-06-10 07:11] LABS: CALCIUM, SERUM 7.8 mg/dL (8.5-10.1); CREATININE 1.3 mg/dL (0.6-1.3); MAGNESIUM 1.5 mg/dL (1.8-2.4); PHOSPHORUS 2.1 mg/dL (2.5-4.9); POTASSIUM 3.8 mmol/L (3.5-5.1)
--- NOTE | 2020-06-10 07:30 | NUR ---
MS RN OPENING NOTES PATIENT RECEIVED IN BED, AWAKE, A/O X4. PATIENT NOTICEABLY SHAKING AND COMPLAINED OF NAUSEA. ZOFRAN AND ATIVAN GIVEN. PATIENT'S BREATHING EVEN AND UNLABORED. NO S/S OF RESPIRATORY DISTRESS. NO COMPLAINS OF PAIN AT THE MOMENT. SAFETY MEASURES IN PLACE: BED IN LOCKED POSITION, CALL LIGHT IN PLACE, SIDE RAILS UP. ENCOURAGED PATIENT TO CALL WHEN IN NEED. SEEN BY MD, NO NEW ORDERS.
[2020-06-10 08:00] VITALS: BP 152/88
[2020-06-10] MEDS ORDERED: K PHOS NEUTRAL 250 MG TABLET PO ONE (08:30)
[2020-06-10] MEDS ORDERED: ONDANSETRON HCL/PF 4 MG/2 ML VIAL IV ONE (08:30)
[2020-06-10] MEDS ORDERED: Magnesium 1GM/D5W 100ML PREMIX 100 ML IV SCH (08:30)
[2020-06-10] MEDS: PANTOPRAZOLE 40 MG TABLET.DR PO SCH (08:37)
[2020-06-10] MEDS: THIAMINE HCL 100 MG TABLET PO SCH (08:37)
[2020-06-10] MEDS: MULTIVITAMINS,THERAGRAN 1 UDTAB TABLET PO SCH (08:41)
[2020-06-10] MEDS: FOLIC ACID 1 MG TABLET PO SCH (08:41)
[2020-06-10 10:00] VITALS: BP 152/88
[2020-06-10] MEDS: COLCHICINE 0.6 MG TABLET PO SCH (14:58)
[2020-06-10 16:00] VITALS: BP 141/70
[2020-06-10] MEDS: HYDROCODONE/APAP 5/325MG TABLET PO PRN ×2 (16:26→20:49)
--- NOTE | 2020-06-10 16:32 | NUR ---
SS Note: SS Consult received for ETOH. SW will follow up at a later time.
--- NOTE | 2020-06-10 18:59 | NUR ---
MS CHANGE OF SHIFT NOTE PATIENT RESTING IN BED. PATIENT WAS LAST GIVEN ATIVAN AT 1458 TO CALM HIM DOWN. PATIENT'S BREATHING EVEN AND UNLABORED. NO S/S OF RESPIRATORY DISTRESS. TOLERATING ROOM AIR. NO COMPLAINS OF PAIN AT THIS TIME, GAVE NORCO LAST AT 1626. SAFETY MEASURES IN PLACE: BED IN LOCKED POSITION, CALL LIGHT IN PLACE, SIDE RAILS UP. IV NS RUNNING AT 125 ML/HR. ENDORSED TO TEAM GUIDE NURSE.
[2020-06-10 20:00] VITALS: BP 151/88
--- NOTE | 2020-06-10 20:23 | NUR ---
RN NOTES PATIENT RESTING IN BED. PATIENT'S BREATHING EVEN AND UNLABORED. NO S/S OF RESPIRATORY DISTRESS. TOLERATING ROOM AIR. NO COMPLAINS OF PAIN AT THIS TIME. SAFETY MEASURES IN PLACE: BED IN LOCKED POSITION, CALL LIGHT IN PLACE, SIDE RAILS UP. IV NS RUNNING AT 125 ML/HR. WILL CONTINUE TO MONITOR.
[2020-06-11] MEDS: LORAZEPAM INJ 2 MG/ML VIAL IV PRN ×5 (00:13→22:16)
[2020-06-11] MEDS: HYDROCODONE/APAP 5/325MG TABLET PO PRN ×5 (01:13→22:16)
[2020-06-11] MEDS: IV NS 0.9% 1,000 ML IV PRN (02:14)
--- NOTE | 2020-06-11 06:53 | NUR ---
RN NOTES PATIENT RESTING IN BED. PATIENT'S BREATHING EVEN AND UNLABORED. NO S/S OF RESPIRATORY DISTRESS. TOLERATING ROOM AIR. NO COMPLAINS OF PAIN AT THIS TIME. SAFETY MEASURES IN PLACE: BED IN LOCKED POSITION, CALL LIGHT IN PLACE, SIDE RAILS UP. IV NS RUNNING AT 125 ML/HR. WILL ENDORSE CARE TO DAY SHIFT NURSE.
[2020-06-11 06:57] LABS: BASOPHILS # (AUTO) 0.1 /CMM (0.0-0.2); BASOPHILS % (AUTO) 0.8 % (0.0-2.0); EOSINOPHILS % (AUTO) 2.1 % (0.0-6.0); HEMATOCRIT 32 % (39-51); HEMOGLOBIN 10.8 g/dL (13.5-17.5); LYMPHOCYTES # (AUTO) 0.9 /CMM (0.8-4.8); LYMPHOCYTES % (AUTO) 13.3 % (20.0-44.0); MEAN CORPUSCULAR HGB CONC 34 g/dl (31.0-36.0); MEAN CORPUSCULAR VOLUME 102 fL (80-96); MONOCYTES # (AUTO) 0.4 /CMM (0.1-1.30); MONOCYTES % (AUTO) 6.7 % (2.0-12.0); NEUTROPHILS % (AUTO) 77.1 % (43.0-81.0); PLATELET COUNT (AUTO) 204 /CMM (150-450); RED BLOOD CELL COUNT(AUTO) 3.12 MIL/uL (4.5-6.0); WHITE BLOOD COUNT (AUTO) 6.5 K/uL (4.3-11.0)
[2020-06-11 07:23] LABS: CALCIUM, SERUM 7.9 mg/dL (8.5-10.1); MAGNESIUM 1.6 mg/dL (1.8-2.4); POTASSIUM 3.1 mmol/L (3.5-5.1)
[2020-06-11 08:00] VITALS: BP 143/100
[2020-06-11] MEDS ORDERED: POTASSIUM CHLORIDE 20 MEQ TAB.PRT.SR PO ONE (08:00)
[2020-06-11] MEDS ORDERED: K PHOS NEUTRAL 250 MG TABLET PO ONE (08:00)
[2020-06-11] MEDS: THIAMINE HCL 100 MG TABLET PO SCH (08:10)
[2020-06-11] MEDS: PANTOPRAZOLE 40 MG TABLET.DR PO SCH (08:11)
[2020-06-11] MEDS: FOLIC ACID 1 MG TABLET PO SCH (08:11)
[2020-06-11] MEDS: COLCHICINE 0.6 MG TABLET PO SCH (08:11)
[2020-06-11] MEDS: MULTIVITAMINS,THERAGRAN 1 UDTAB TABLET PO SCH (08:11)
[2020-06-11] MEDS: Magnesium 1GM/D5W 100ML PREMIX 100 ML IV SCH ×2 (08:26→10:15)
[2020-06-11] MEDS ORDERED: COLCHICINE 0.6 MG TABLET PO SCH (09:00)
[2020-06-11] MEDS: predniSONE 20 MG TABLET PO SCH (10:15)
[2020-06-11 16:00] VITALS: BP 150/100
--- NOTE | 2020-06-11 16:08 | NUR ---
"SS Consult: SS Consult requested for ETOH withdrawal. The pt. is a 59-year old male. SW met with pt. bedside. Pt. is alert & oriented x 4 and agreeable to meet with SW. The pt. appears well-groomed and made appropriate eye contact. Patient denies SI/HI and denies hallucinations. Pt. thought process is WNL. Pt. with fair insight & fair judgement. SW completed alcohol intervention with pt. Pt. stated that his alcohol consumption has negatively affected his relationships, employment and mental wellbeing. SW provided pt. with addiction resources and patient was receptive. Patient stated that he will call outpatient or inpatient treatment centers when he is ready. Noted. Patient denies drug use & denies Hx. of mental illness. Per pt., his support system includes his mother, Isaura Hodge [phone] and has two daughter that live out of state and he commuicates with them often. Per pt., he lives at home [[address] [place] [address]] alone and would like to be d/c to home when ready. 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 SW provided pt. with homeless resources and SW encouraged pt. to speak with his landlord as they may still be able to provide housing without payment due to Coronavirus Pandemic financial assistance laws. Pt. agreeable. SW provide pt. with the following resources: Substance Abuse resources provided included: [facility] Substance Abuse Self-Helpline (PHELPS HEALTH) ; CRI -HELP [address] [facility]. [place]. [place] [address] ; [facility] [address] [facility] [address] ; [facility] Army Rehabilitation Program [address] [facility] [place] [place] [address] ; [facility] [address] [facility] [address] ; [facility] [address] [place] [facility] [address] ; [facility] [address] [facility] [address] ; [facility] Substance Abuse Helpline(PHELPS HEALTH)-[facility] ; [facility] Family Counseling ; [facility] [place]; [facility] [place]; Cri-Help [place]; I-ADARP Inter Agency Drug Abuse Recovery Cricket Bhagat; [facility] [place]; [facility] [place]; [facility] [place]; [facility], [facility]; Alcoholics Anonymous -SFV; Wf-Pqyo-Cuzqvtc ; Marijuana Anonymous -SFV; Narcotics Anonymous www.na.org; Year-round shelters: [facility] [place] [address] [place], [place] [address] ; [facility] [place] [address] [place] [address]; [facility] Nailyoe5062 [facility] [phone] Winter Shelters: [facility] Provider: David of Natali [place] Address: [address] [facility], [address] # of Beds: 47 Population Served: Nancie [facility] 6 | [facility] Marisol Nelson Nerinx Provider: Home at Last Address: [address], [address] # of Beds: 66 Population Served: Nancie [employer] Nerinx Provider: First to Serve Address: [address] [facility] [place], [address] # of Beds: 56 Population Served: Nancie Acevedo JenniferThuy Bean Provider: SS/ [facility] Address: [address] [facility], [address] # of Beds: 49 Population Served: Coed SPA 8 | Steuben [place] Provider: First to Serve Address: [address] Low # of Beds: 37 Population Served: Coed Hygiene: [facility] Hospital[facility]: [address] [place] ; [facility] [address] [facility] ; [facility] [address] [place] . Food Resources: [place] Food Pantry at [facility]- [address] [place]; Meet Each Need with Dignity ([facility]) [address] [facility] Center[facility] [place]; [facility] Food Pantry [address] [facility]; [facility] 8270 [facility]. Mental Health resources provided: [facility] [address] [place], [place] [address] ; [facility] Mental Health [place] Inc[employer] [address] [facility] [address], [place], [place] [id number] ; [facility] Mental [facility] [address] [place], [place] [id number] ; [facility] [address] [place], [place] [phone] Healthcare Clinics: [facility] [address] [facility], [address] [place]. [place] ; [facility] [address] [place] [address]; [facility] [address] [facility]. [place] [phone] Counseling--Outpatient [facility] [address], [address] [place], [place] [id number] (Specializes in in-depth psychotherapy for emotional distress: anxiety, depression, interpersonal conflicts, life transitions, childhood abuse) [facility] [address] [place] [address] (Assist with solving problem marital difficulties, separation & divorce, aging parents, & grief, chronic & terminal illness) [facility] [address] [place] [address] (Deal with loss & grief, anxiety, marital difficulties) Homebound/Mental Health Services [address], [address] [place], [place] [id number] (Provide in-home mental services to people who are incapable of leaving their homes) Organization for Needs of the Elderly Senior Service/Resource Center [address] [facility] [address] [facility] [address] [place] [address] HELP AT HOME CAREGIVER SUPPORT: In Home Support Services (Must have Medi-Shaila to be eligible) *Ask for a list of agencies that provide services to assist with care in the home. Local Senior Centers also have listings of care providers. HOME SAFETY MODIFICATIONS AND EQUIPMENT: Senior centers have additional referrals. [place] Housing and Community Investment Dept. Handyworker Program (low income) or Visit http://hcidla.[facility].org/yar-rmadjl-gf for more information National Seating and Mobility and/or ; Forever Active www.foreveractivemed.ARTENCY.COM Stay Home Safe www.Stayhomesafe.com LIFE ALERT RESPONSE SYSTEM: Wander (f. YongoPal) Services [phone] www. [employer] Life Alert [phone] www.lifeOxford Photovoltaicsrt.ARTENCY.COM Life Station [phone] www.eXIthera Pharmaceuticalsation.ARTENCY.COM Safe Return [phone] www.alz.or/safereturn Cell Phones for Seniors www.Social 2 Step MEALS AND FOOD PROGRAMS: [place] Meals on Wheels [phone] [place] Meals on Wheels [phone] [facility] [phone] [facility] to the Homebound [phone] [place] to the Homebound [phone] [facility] to the Homebound [phone] [facility] to the Homebound [phone] [facility] [phone] [facility] [phone] ONE Generation [phone] [facility] [phone] [facility] [phone] Meals on Wheels [phone] For all ages: $6.85/ meal w side. Delivered M-F from 10 am-1pm. Application and payment is done over the phone. Frozen meals available for weekends. CUPR Food [facility] [phone] [facility] Wire Stripper [phone] [facility] [phone] [facility]- Brown bag lunches [phone] [facility] [phone] MEAL/GROCERY DELIVERY PROGRAMS: [facility] Gourmet Meals [phone]- [facility] [phone]- [facility] Magic Kitchen [phone] Moms Meals [phone] (ask Wang for Discount Select grocery stores may provide delivery. MEDICAL INSURANCE SUPPORT SERVICES: Center for Health Care Rights [phone] Health Insurance Counseling/Advocacy Programs (HICAP)-Must have Medicare. Offers counseling for Medi-Shaila eligibility [phone] Department of Public Wire Stripper [phone] www.dhcs.ca.gov Medicare 048-668-1692 www.socialsecurity.org Social Security [phone] TRANSPORTATION: Local [facility] Centers may have applications for transportation programs and additional resources. ACCESS Services [phone] Transportation for seniors and disabled persons 7 days a week requiring 254 hr. advance reservation. Must apply and register for program taylor eligible. CITY RIDE [phone] or [phone] Transportation for seniors and persons with ADA card/metro disabled card in the [facility]. M-F only. Must register for services. ONE GENERATION [phone] Serves 65 years + in conjunction with Qoiza program. Must be registered with both programs. A to B Transport [phone] Provides wheelchair/gurney van service. Adult Medical Transport [phone] Accepts Medi-shaila with prior authorization. Care Van [phone] Provides wheelchair Transport. [facility] Wide Transportation [phone] Provides gurney service [facility] [place] [facility] [phone] Gurney Transport. [facility] Transportation [phone] wheelchair & gurney transport [facility] Transportation [phone] wheelchair & gurney transport [place] Non-Emergency Transport [phone] wheelchair & gurney transport [facility] Living [place] [phone] Short Term Transportation primarily for adults with disabilities on social security income. Nominal fee may apply and a reservation is required. Webcom Cab [phone] or [phone] Rock Pansievei [phone] [place] [address] Referral Services -[phone] For additional programs & services"
--- NOTE | 2020-06-11 18:47 | NUR ---
RN CLOSING NOTE PT IS AWAKE IN BED. A/O X 3 AND SOMALI SPEAKING. COMPLAINT OF PAIN. PAIN MEDS GIVEN. NO COMPLAINT OF NAUSEA. CURRENTLY ON RA WITH NO SOB OR RESPIRATORY DISTRESS PRESENT. SELF AMBULATORY WITH BATHROOM PRIVILEGES. SKIN IS INTACT. NO EDEMA PRESENT. HL PRESENT ON L HAND 22G. ROUTINE MEDS GIVEN. SAFETY MEASURES IN PLACE. SIDE RAILS RAISED. BED LOWERED. CALL LIGHT WITHIN REACH. REPORT TO BE GIVEN TO NIGHT NURSE FOR SIRIA.
--- NOTE | 2020-06-11 19:40 | NUR ---
MS/RN OPENING NOTE RECEIVED PATIENT RESTING IN BED. ALERT AND ORIENTED X 3. ABLE TO MAKE NEEDS KNOWN. NO COMPLAINTS OF PAIN AT THIS TIME. CONTINUES ON ROOM AIR WITH NO SIGNS OR SYMPTOMS OF RESPIRATORY DISTRESS NOTED. MINIMAL SHAKING NOTED TO UPPER EXTREMITIES. IV ACCESS TO LEFT HAND INTACT AND PATENT. CALL LIGHT WITHIN REACH. ASPIRATION, FALL AND SAFETY PRECAUTIONS MAINTAINED. WILL CONTINUE TO MONITOR.
[2020-06-11 20:00] VITALS: BP 139/97
--- NOTE | 2020-06-11 22:20 | NUR ---
MS/RN NOTE PATIENT WITH COMPLAINTS OF GOUT PAIN AND SHAKINESS TO BILATERAL HANDS. GIVEN PRN NORCO AND ATIVAN WITH POSITIVE EFFECT.
[2020-06-12] MEDS: LORAZEPAM INJ 2 MG/ML VIAL IV PRN ×2 (03:16→09:10)
--- NOTE | 2020-06-12 03:30 | NUR ---
MS/RN NOTE PATIENT WITH COMPLAINTS OF SHAKINESS TO BILATERAL HANDS. GIVEN PRN ATIVAN WITH PENDING EFFECT.
--- NOTE | 2020-06-12 06:55 | NUR ---
MS/RN CLOSING NOTE PATIENT CURRENTLY RESTING IN BED. ALERT AND ORIENTED X 3. ABLE TO MAKE NEEDS KNOWN. NO COMPLAINTS OF PAIN AT THIS TIME. CONTINUES ON ROOM AIR WITH NO SIGNS OR SYMPTOMS OF RESPIRATORY DISTRESS NOTED. IV ACCESS TO RIGHT HAND INTACT AND PATENT. CALL LIGHT WITHIN REACH. ASPIRATION, FALL AND SAFETY PRECAUTIONS MAINTAINED. WILL ENDORSE PLAN OF CARE TO ONCOMING SHIFT. .
[2020-06-12 06:56] LABS: BASOPHILS % (AUTO) 0.4 % (0.0-2.0); EOSINOPHILS % (AUTO) 0.5 % (0.0-6.0); HEMATOCRIT 32 % (39-51); HEMOGLOBIN 10.7 g/dL (13.5-17.5); LYMPHOCYTES # (AUTO) 0.8 /CMM (0.8-4.8); LYMPHOCYTES % (AUTO) 8.2 % (20.0-44.0); MEAN CORPUSCULAR HGB CONC 34 g/dl (31.0-36.0); MEAN CORPUSCULAR VOLUME 102 fL (80-96); MONOCYTES # (AUTO) 0.6 /CMM (0.1-1.30); MONOCYTES % (AUTO) 5.9 % (2.0-12.0); NEUTROPHILS # (AUTO) 8.1 /CMM (1.8-8.9); PLATELET COUNT (AUTO) 204 /CMM (150-450); RED BLOOD CELL COUNT(AUTO) 3.09 MIL/uL (4.5-6.0); WHITE BLOOD COUNT (AUTO) 9.5 K/uL (4.3-11.0)
[2020-06-12 07:27] LABS: CALCIUM, SERUM 8.3 mg/dL (8.5-10.1); CREATININE 0.9 mg/dL (0.6-1.3); MAGNESIUM 1.9 mg/dL (1.8-2.4); PHOSPHORUS 2.4 mg/dL (2.5-4.9); POTASSIUM 3.9 mmol/L (3.5-5.1)
--- NOTE | 2020-06-12 07:30 | NUR ---
MS RN OPENING NOTES RECEIVED PATIENT IN BED, ASLEEP. PATIENT ON ROOM AIR; BREATHING EVEN AND UNLABORED; NO SOB NOTED AT THIS TIME. NO S/S OF PAIN SUCH FACIAL; GRIMACING, MOANING OR GUARDING. R HAND IV ACCESS G # 20 PRESENT AND INTACT, SL. SAFETY PRECAUTIONS IN PLACE; BED IN LOW POSITION AND LOCKED, RAILS UP X2, CALL LIGHT WITHIN REACH. WILL CONTINUE TO MONITOR PATIENT.
[2020-06-12 08:00] VITALS: BP 146/99
[2020-06-12] MEDS ORDERED: K PHOS NEUTRAL 250 MG TABLET PO ONE (08:00)
[2020-06-12] MEDS: THIAMINE HCL 100 MG TABLET PO SCH (08:16)
[2020-06-12] MEDS: COLCHICINE 0.6 MG TABLET PO SCH (08:17)
[2020-06-12] MEDS: PANTOPRAZOLE 40 MG TABLET.DR PO SCH (08:17)
[2020-06-12] MEDS: MULTIVITAMINS,THERAGRAN 1 UDTAB TABLET PO SCH (08:17)
[2020-06-12] MEDS: predniSONE 20 MG TABLET PO SCH (08:17)
[2020-06-12] MEDS: FOLIC ACID 1 MG TABLET PO SCH (08:17)
[2020-06-12] MEDS ORDERED: METH4TAB3 PO (08:30)
[2020-06-12] MEDS ORDERED: CALC-101 PO (08:30)
[2020-06-12] MEDS ORDERED: LORA-259 PO (08:30)
[2020-06-12] MEDS ORDERED: MULT-24 PO (08:30)
[2020-06-12] MEDS ORDERED: THIA100T70 PO (08:30)
--- NOTE | 2020-06-12 09:16 | NUR ---
MS/RN NOTE PATIENT WITH COMPLAINTS OF SHAKINESS TO BILATERAL HANDS. PRN ATIVAN GIVEN. WILL REASSESS.
--- NOTE | 2020-06-12 11:18 | NUR ---
MS SOLDERER PRODUCTION LINE NOTES PATIENT DISCHARGED HOME IN MEDICALLY STABLE CONDITION. PATIENT A/O X4, MAKES HIS NEEDS KNOWN, ON ROOM AIR. ALL DISCHARGE DOCUMENTATIONS READY AND SIGNED BY PATIENT. TEACHING PROVIDED ON NEW MEDICATION LIST AND MD DISCHARGE INSTRUCTIONS; PATIENT VERBALIZED UNDERSTANDING. ALL BELONGINGS AND VALUABLES ACCOUNTED FO WELL. BEFORE LEAVING THE UNIT IV ACCESS WAS REMOVED. PATIENT LEFT THE FLOOR ACCOMPANIED BY HOSPITAL MANAGER. PATIENT STATED THE PREFERENCE TO GO HOME BY BUS.
== END 2020-06-12 11:10 | disposition home or self-care (01) | DRG 775 ==
LOC: ER 17:53 → TELE 20:25 → MED 21:57
PROVIDERS: ADMIT Nurse Practitioner Acute Care; ATTEND Nurse Practitioner Acute Care
DX: F10.239 Alcohol dependence with withdrawal, unspecified (principal); N17.0 Acute kidney failure with tubular necrosis; E87.2 Acidosis; K29.20 Alcoholic gastritis without bleeding; Y90.8 Blood alcohol level of 240 mg/100 ml or more; E78.5 Hyperlipidemia, unspecified; I10 Essential (primary) hypertension; M10.9 Gout, unspecified; Z87.01 Personal history of pneumonia (recurrent); R00.0 Tachycardia, unspecified; Z85.47 Personal history of malignant neoplasm of testis; Z20.822 Contact with and (suspected) exposure to COVID-19; W19.XXXA Unspecified fall, initial encounter; Y93.9 Activity, unspecified; Y92.009 Unspecified place in unspecified non-institutional (private) residence as the place of occurrence of the external cause; Z90.79 Acquired absence of other genital organ(s)
CPT/HCPCS: 36415; 70450-TC; 71045-TC; 72125-TC; 76705-TC; 80048-TC; 80076-TC; 82010-TC; 83605-TC; 83690-TC; 83735-TC; 84100-TC; 84484-TC; 85025-TC; 87081-TC; G0378; G0480; J2060; J2405; J3475; J3490; J7030

== ENCOUNTER 2021-05-22 14:54 | Emergency (ER) | payer MEDICAID ==
[~2021-05-22] VITALS: Ht 175.3 cm; Wt 83.9 kg
[~2021-05-22 14:54] MED LIST changes: +CALC-101 PO; +LORA-259 PO; +MULT-24 PO; +THIA100T70 PO
--- NOTE | 2021-05-22 14:54 | NUR ---
PT BIBRA 889 C/O ETOH AND ABDOMINAL PAIN. 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 WILL CONTINUE TO MONITOR.
[2021-05-22] MEDS ORDERED: FAMOTIDINE (20 MG) 20 MG TABLET ONE (15:45)
[2021-05-22] MEDS ORDERED: FAMOTIDINE (20 MG) 20 MG TABLET PO ONE (16:00)
--- NOTE | 2021-05-22 16:05 | NUR ---
URINE COLLECTED AND SENT TO LAB
[2021-05-22 16:41] LABS: BASOPHILS # (AUTO) 0.1 K/uL (0.0-0.2); BASOPHILS % (AUTO) 1.4 % (0.0-2.0); EOSINOPHILS % (AUTO) 1.6 % (0.0-6.0); HEMATOCRIT 44 % (39-51); HEMOGLOBIN 14.5 g/dL (13.5-17.5); LYMPHOCYTES # (AUTO) 1.2 K/uL (0.8-4.8); LYMPHOCYTES % (AUTO) 16.2 % (20.0-44.0); MEAN CORPUSCULAR HGB CONC 33 g/dl (31.0-36.0); MEAN CORPUSCULAR VOLUME 89 fL (80-96); MONOCYTES # (AUTO) 0.5 K/uL (0.1-1.30); MONOCYTES % (AUTO) 6.4 % (2.0-12.0); NEUTROPHILS # (AUTO) 5.7 K/uL (1.8-8.9); NEUTROPHILS % (AUTO) 74.4 % (43.0-81.0); PLATELET COUNT (AUTO) 306 K/uL (150-450); RED BLOOD CELL COUNT(AUTO) 4.99 MIL/uL (4.5-6.0); WHITE BLOOD COUNT (AUTO) 7.7 K/uL (4.3-11.0)
[2021-05-22 16:58] LABS: BILIRUBIN,URINE NEGATIVE (NEGATIVE); COLOR,URINE YELLOW (YELLOW); LEUKOCYTE ESTERASE ,URINE NEGATIVE (NEGATIVE); NITRITE, URINE NEGATIVE (NEGATIVE); PROTEIN,URINE NEGATIVE (NEGATIVE); UGLUCOSE NEGATIVE (NEGATIVE); UROBILINOGEN,URINE 0.2 EU/dL (0.2)
[2021-05-22 17:38] LABS: BACTERIA,URINE None seen /HPF (None Seen); SQUAMOUS EPITHELIAL CELL,UR 0-2 /HPF (None Seen); WBC,URINE 0-2 /HPF (0-3)
[2021-05-22 17:43] LABS: ALBUMIN 4.3 g/dL (3.4-5.0); BILIRUBIN,DIRECT 0.1 mg/dL (0.0-0.2); BILIRUBIN,TOTAL 0.5 mg/dL (0.2-1.0); CALCIUM, SERUM 8.5 mg/dL (8.5-10.1); CREATININE 1.2 mg/dL (0.6-1.3); POTASSIUM 3.8 mmol/L (3.5-5.1)
[2021-05-22] MEDS ORDERED: IV NS 0.9% 1,000 ML BAG IV ONE (18:30)
[2021-05-22] MEDS ORDERED: ONDANSETRON HCL/PF 4 MG/2 ML VIAL IV ONE (21:30)
[2021-05-22] MEDS ORDERED: LORAZEPAM INJ 2 MG/ML VIAL IV ONE (21:30)
[2021-05-22] MEDS ORDERED: LORAZEPAM INJ 2 MG/ML VIAL ONE (21:56)
[2021-05-22] MEDS ORDERED: ONDANSETRON HCL/PF 4 MG/2 ML VIAL ONE (21:57)
--- NOTE | 2021-05-22 23:37 | NUR ---
Patient discharged to home in stable condition. Written and verbal after care instructions given. Patient verbalizes understanding of instruction. PT ambulatory with a steady gait
--- NOTE | 2021-05-22 23:40 | NUR ---
Patient discharged to home in stable condition. Written and verbal after care instructions given. Patient verbalizes understanding of instruction.IV removed. Catheter intact and site benign. Pressure and 4x4 applied to site. No bleeding noted.
[2021-05-22 23:47] VITALS: BP 141/80
== END 2021-05-22 23:47 | disposition home or self-care (01) ==
LOC: ER 14:56
DX: K29.20 Alcoholic gastritis without bleeding (principal); F10.229 Alcohol dependence with intoxication, unspecified; R00.0 Tachycardia, unspecified; I10 Essential (primary) hypertension; F41.9 Anxiety disorder, unspecified; Z85.47 Personal history of malignant neoplasm of testis; Z90.79 Acquired absence of other genital organ(s); Z60.2 Problems related to living alone; Z79.52 Long term (current) use of systemic steroids; Z79.82 Long term (current) use of aspirin; Z79.01 Long term (current) use of anticoagulants; Z79.899 Other long term (current) drug therapy; Y90.8 Blood alcohol level of 240 mg/100 ml or more
CPT/HCPCS: 36415; 80048; 80076; 80320; 81001; 83690; 85025; 87086; 96361; 96374; 96375; 99285; J2060; J2405; J7030; G0480

== ENCOUNTER 2021-06-11 10:21 | Emergency (ER) | payer MEDICAID ==
[~2021-06-11] VITALS: Ht 170.2 cm; Wt 81.6 kg
--- NOTE | 2021-06-11 10:21 | NUR ---
PT BIB SELF C/O COUGH AND CONGESTION STARTED LAST SUNDAY. PT IS AAOX4, NOT IN RESPIRATORY DISTRESS, HOOKED TO V/S MONITOR, KEPT RESTED AND COMFORTABLE. WILL CONTINUE TO MONITOR.
--- NOTE | 2021-06-11 10:40 | NUR ---
SEEN AND EXAMINED BY .
--- NOTE | 2021-06-11 11:19 | NUR ---
COVID SPECIMEN OBTAINED AND SENT TO LAB.
[2021-06-11] MEDS ORDERED: predniSONE 20 MG TABLET ONE (11:47)
[2021-06-11] MEDS ORDERED: ALBUTEROL FS 2.5 MG/3 ML VIAL.NEB ONE (11:51)
--- NOTE | 2021-06-11 11:51 | NUR ---
RT AT BEDSIDE FOR BREATHING TX.
[2021-06-11] MEDS ORDERED: ALBUTEROL FS 2.5 MG/3 ML VIAL.NEB NEB ONE (12:00)
[2021-06-11] MEDS ORDERED: predniSONE 20 MG TABLET PO ONE (12:00)
--- NOTE | 2021-06-11 12:09 | NUR ---
RT NEB TX GIVEN ORDERED IN ER
[2021-06-11] MEDS ORDERED: AZIT250T13 PO (12:43)
[2021-06-11] MEDS ORDERED: ALBU8.5H8 INH (12:43)
[2021-06-11] MEDS ORDERED: PRED20TA PO (12:43)
--- NOTE | 2021-06-11 12:57 | NUR ---
Patient discharged to home in stable condition. Written and verbal after care instructions given. Patient verbalizes understanding of instruction.
[2021-06-11 12:58] VITALS: BP 125/73
== END 2021-06-11 13:01 | disposition home or self-care (01) ==
LOC: ER 10:22
DX: J20.9 Acute bronchitis, unspecified (principal); Z20.822 Contact with and (suspected) exposure to COVID-19; Z87.01 Personal history of pneumonia (recurrent); Z85.47 Personal history of malignant neoplasm of testis; J45.909 Unspecified asthma, uncomplicated; R94.31 Abnormal electrocardiogram [ECG] [EKG]
CPT/HCPCS: 71045; 93005; 94640; 99285; C9803; J7512; U0003

== ENCOUNTER 2021-07-21 06:33 | Emergency (ER) | payer MEDICAID ==
[~2021-07-21] VITALS: Ht 170.2 cm; Wt 81.6 kg
[~2021-07-21 06:33] MED LIST changes: +ALBU8.5H8 INH; +AZIT250T13 PO; +PRED20TA PO
--- NOTE | 2021-07-21 06:50 | NUR ---
BIBSELF C/O ANXIOUS AND HAVING ALCOHOL WITHDRAWL LAST DRINK 3 HRS AGO. +NAUSEA +REQUEST FOR SUTURE REMOVAL ON FACE. PATIENT IN BED 09 VINOD MUNSON.
[2021-07-21] MEDS ORDERED: ONDANSETRON HCL/PF 4 MG/2 ML VIAL ONE (07:29)
[2021-07-21] MEDS: ONDANSETRON HCL/PF 4 MG/2 ML VIAL IVP ONE (07:30)
[2021-07-21] MEDS ORDERED: LORAZEPAM INJ 2 MG/ML VIAL ONE (07:30)
[2021-07-21] MEDS: LORAZEPAM INJ 2 MG/ML VIAL IVP ONE (07:30)
[2021-07-21] MEDS: IV NS 0.9% 1,000 ML BAG IV ONE (07:30)
[2021-07-21 07:44] LABS: BASOPHILS # (AUTO) 0.1 K/uL (0.0-0.2); BASOPHILS % (AUTO) 1.1 % (0.0-2.0); EOSINOPHILS % (AUTO) 2.4 % (0.0-6.0); HEMATOCRIT 40 % (39-51); HEMOGLOBIN 13.4 g/dL (13.5-17.5); LYMPHOCYTES # (AUTO) 1.1 K/uL (0.8-4.8); MEAN CORPUSCULAR HGB CONC 34 g/dl (31.0-36.0); MEAN CORPUSCULAR VOLUME 89 fL (80-96); MONOCYTES # (AUTO) 0.7 K/uL (0.1-1.30); MONOCYTES % (AUTO) 12.5 % (2.0-12.0); NEUTROPHILS # (AUTO) 3.4 K/uL (1.8-8.9); PLATELET COUNT (AUTO) 230 K/uL (150-450); WHITE BLOOD COUNT (AUTO) 5.3 K/uL (4.3-11.0)
[2021-07-21 08:03] LABS: ALANINE AMINOTRANSFERASE 35 U/L (12-78); ALBUMIN 3.6 g/dL (3.4-5.0); ALCOHOL, BLOOD 11 mg/dL (0-0); ALKALINE PHOSPHATASE 106 U/L (46-116); ASPARTATE AMINOTRANSFERASE 44 U/L (15-37); BILIRUBIN,DIRECT 0.2 mg/dL (0.0-0.2); BILIRUBIN,TOTAL 0.7 mg/dL (0.2-1.0); CALCIUM, SERUM 8.6 mg/dL (8.5-10.1); CARBON DIOXIDE 22 mmol/L (21-32); CHLORIDE 103 mmol/L (98-107); GLUCOSE 115 mg/dL (74-106); POTASSIUM 3.6 mmol/L (3.5-5.1); SODIUM SERUM 137 mmol/L (136-145); TOTAL PROTEIN, SERUM 7.1 g/dL (6.4-8.2); UREA NITROGEN, BLOOD 21 mg/dL (7-18)
[2021-07-21 08:07] LABS: ACETAMINOPHEN 0 ug/ml (10-30)
[2021-07-21] MEDS ORDERED: CHLO25CA22 PO (10:17)
--- NOTE | 2021-07-21 10:30 | NUR ---
SS Consult: SS Consult requested for alcohol use. The pt. is a 60 year old male. Upon SS consult the pt. is Alert & oriented x 4 and makes good eye contact. The pt. is well-groomed, with euthymic mood. The pt.'s speech & thought process are WNL. Pt. states he is already connected with Alcoholics Anonymous and [facility]. Pt. stated he had been sober for 9 months and just "fell off the bandwagon". Pt. stated he will be connecting with these supports for assistance with his sobriety. SW provided pt. with addiction resources and pt. accepted them. Pt. stated he will be returning home [[address] [facility] [place] [place] [address]; [phone]]. ADDICTION RESOURCES For Drugs and Alcohol [facility] Substance Abuse Helpline(SAS)[facility] Outpatient treatment, residential treatment, recovery support for youth and adults Action Family Counseling www.SocialMart [facility] Teen programs for drug/alcohol education and support [facility]. Program for adults, sliding scale provides support and education Samantha Document Agility www.go2 media.org [place]; Outpatient/residential treatment programs; transition to sober living Cri-Help www.cri-help.org [place]; Outpatient and residential treatment programs; transition to sober living I-ADARP Inter Agency Drug Abuse Recovery Cricket Bhagat; Outpatient education and supportive programs for teens and adults [facility] www.oasiswomensrecovery.org [place]; Residential treatment and work program for females only [facility] www.phoPopularMediaharmon memorial [facility].org [place]: Outpatient/residential treatment program for teens and young adults [facility] www.[facility].org [place] Detox, inpatient, outpatient for adults and youth [facility], [facility]. [facility]; Outpatient programs and referrals to community residential programs. Alcoholics Anonymous -SFV information and meeting and schedules www.aa-intergroup.org Ju-Hwuw-Lasnuoh https://al-anon.org/ [place] support groups for family of alcoholics. Marijuana Anonymous www.BuilkistrOwned it6.org -sfv listing of meetings Narcotics Anonymous www.na.org SOBER LIVING RESOURCES The Sober Living Network www.soberhousing.net A non-profit agency that provides resources to recovery and sober living homes throughout [place], [facility] Sober Living Homes: A Work in Progress, [facility] Recovery Advocates, [place] [facility] Womens Sober Living Homes: [facility] x [phone] [place], [place] [facility] Coed Sober Living Homes: [facility] Counseling--[facility]patient [facility] [address] [facility] [place] [address] (Specializes in in-depth psychotherapy for emotional distress: anxiety, depression, interpersonal conflicts, life transitions, childhood abuse) [facility] [address] [place] [address] (Assist with solving problem marital difficulties, separation & divorce, aging parents, & grief, chronic & terminal illness) [facility] [address] [place] [address] (Deal with loss & grief, anxiety, marital difficulties) Homebound/Mental Health Services [address] [facility] [address] [place], [place] [address] (Provide in-home mental services to people who are incapable of leaving their homes) Organization for Needs of the Elderly Senior Service/Resource Center [address] [place] [address] [facility] [address] [place], [place] [id number] Mental Health Services Rosa Avendaño [address] [place] [address] Services: Outpatient therapy for children, teens, young adults, adults, older adults, and families; Psychiatric services, medication support Psychiatric Outpatient Services [facility] Partial Hospitalization and Intensive Outpatient Program (Managed Care and [place] Only)[address] [facility] [phone] [facility] Partial Hospitalization and Outpatient Nsnjqxc90117 [facility] [address] [place], [place] [phone] [facility] [place] Partial Hospitalization and Outpatient Hexbzqh5384 [place], [place] [phone] [facility] Center Wlz[address] [facility] [address] [place], [place] [phone] [facility] Partial Hospitalization and Outpatient Ryxqnsg22180 [place], [phone] Crisis and Hotline Telephone Numbers 24-Hour service unless stated Arthur Crisis Hotlines: [facility] Mental Health/Crisis Line........255.197.7917 Suicide Prevention Center (24 Hours).......108.876.1575 Suicide Prevention Crisis Center.......908.880.3119 (24 Hours) Assaults Against Women Hotline.........675.530.7227 (24 Hours -- [facility]) Women and Children Crisis Assisted...........505.575.2122 (24 Hours) Child Abuse Hotline............962.730.2738 ([place]. [place] Dept [facility] Childrens Services Rape Treatment Center (24 Hours)..........[phone] Alcoholics Anonymous (24 Hours)..........[phone] Cocaine Anonymous (24 Hours)............[phone] Narcotics Anonymous (24 Hours)..........[phone] Cheryl Loaiza [facility] [address], [place] [address]
--- NOTE | 2021-07-21 10:33 | NUR ---
IV removed. Catheter intact and site benign. Pressure and 4x4 applied to site. No bleeding noted.Patient discharged to home in stable condition. Written and verbal after care instructions given. Patient verbalizes understanding of instruction.
[2021-07-21 10:34] VITALS: BP 134/90
== END 2021-07-21 10:34 | disposition home or self-care (01) ==
LOC: ER 06:38
DX: F10.139 Alcohol abuse with withdrawal, unspecified (principal); I10 Essential (primary) hypertension; Z85.47 Personal history of malignant neoplasm of testis; Z90.79 Acquired absence of other genital organ(s); Z60.2 Problems related to living alone; Z79.899 Other long term (current) drug therapy; Y90.0 Blood alcohol level of less than 20 mg/100 ml
CPT/HCPCS: 36415; 71045; 80048; 80076; 80143; 80320; 84484 ×2; 85025; 93005; 96361; 96374; 96375; 99285; J2060; J2405; J7030; G0480

== ENCOUNTER 2022-12-18 05:19 | Emergency (ER) | payer MEDICAID ==
[~2022-12-18] VITALS: Ht 170.2 cm; Wt 72.6 kg
[~2022-12-18 05:19] MED LIST changes: +CHLO25CA22 PO
[2022-12-18] MEDS ORDERED: CYCLOBENZAPRINE 10 MG TABLET ONE (06:30)
[2022-12-18] MEDS ORDERED: CYCLOBENZAPRINE 10 MG TABLET PO ONE (06:30)
[2022-12-18] MEDS ORDERED: IBUPROFEN 600 MG TABLET PO ONE (06:30)
[2022-12-18] MEDS ORDERED: IBUPROFEN 600 MG TABLET ONE (06:30)
[2022-12-18 08:27] VITALS: BP 128/81; TEMP 98; O2SAT 97
== END 2022-12-18 08:27 | disposition home or self-care (01) ==
LOC: ER 05:20
DX: M54.50 Low back pain, unspecified (principal); I10 Essential (primary) hypertension; F41.9 Anxiety disorder, unspecified
CPT/HCPCS: 72110-TC

== ENCOUNTER 2022-12-22 21:14 | Emergency (ER) | payer MEDICAID ==
[~2022-12-22] VITALS: Ht 170.2 cm; Wt 72.6 kg
[2022-12-22 23:19] LABS: BASOPHILS # (AUTO) 0.1 K/uL (0.0-0.2); BASOPHILS % (AUTO) 1.2 % (0.0-2.0); EOSINOPHILS # (AUTO) 0.1 K/uL (0.0-0.7); EOSINOPHILS % (AUTO) 1.4 % (0.0-6.0); HEMATOCRIT 41 % (39-51); HEMOGLOBIN 13.3 g/dL (13.5-17.5); LYMPHOCYTES # (AUTO) 1.1 K/uL (0.8-4.8); MEAN CORPUSCULAR HEMOGLOBIN 32 PG (26.0-33.0); MEAN CORPUSCULAR HGB CONC 33 g/dl (31.0-36.0); MEAN CORPUSCULAR VOLUME 98 fL (80-96); MONOCYTES # (AUTO) 0.5 K/uL (0.1-1.30); NEUTROPHILS # (AUTO) 2.5 K/uL (1.8-8.9); NEUTROPHILS % (AUTO) 60.4 % (43.0-81.0); PLATELET COUNT (AUTO) 119 K/uL (150-450); RED BLOOD CELL COUNT(AUTO) 4.14 MIL/uL (4.5-6.0); WHITE BLOOD COUNT (AUTO) 4.2 K/uL (4.3-11.0)
[2022-12-22 23:30] LABS: CREATININE 0.8 mg/dL (0.6-1.3); POTASSIUM 3.8 mmol/L (3.5-5.1)
[2022-12-22 23:33] LABS: INR 0.92 (0.91-1.10); PROTHROMBIN TIME 9.8 SECS (9.2-11.1)
[2022-12-22 23:35] LABS: ALBUMIN 4.1 g/dL (3.4-5.0); BILIRUBIN,DIRECT 0.2 mg/dL (0.0-0.2); BILIRUBIN,TOTAL 0.6 mg/dL (0.2-1.0); TOTAL PROTEIN, SERUM 8.2 g/dL (6.4-8.2)
[2022-12-22] MEDS ORDERED: ACETAMINOPHEN ES 500 MG TABLET ONE (23:59)
[2022-12-23] MEDS ORDERED: ACETAMINOPHEN ES 500 MG TABLET PO ONE
[2022-12-23 01:26] VITALS: BP 139/91; TEMP 98.4; O2SAT 97
== END 2022-12-23 01:27 | disposition home or self-care (01) ==
LOC: ER 21:17
DX: K62.5 Hemorrhage of anus and rectum (principal); Z79.899 Other long term (current) drug therapy; Z79.82 Long term (current) use of aspirin; Z60.2 Problems related to living alone
CPT/HCPCS: 36415; 80048-TC; 80076-TC; 85025-TC; 85730-TC